=== PATIENT | female | born 1975 | race American Indian/Alaskan Native ===

== ENCOUNTER 2018-03-10 23:43 | Emergency (ER) | payer MEDICAID, OTHER ==
[2018-03-11] MEDS ORDERED: MOTRIN PO ONE (04:35)
--- NOTE | 2018-03-11 04:38 | Emergency Department Report ---
ED Extremity Problem HPI - General Chief complaint: Extremity Problem,Nontraumatic Stated complaint: SWELLING IN RIGHT ARM Time Seen by Provider: 03/11/18 04:22 Source: patient Mode of arrival: Ambulatory Limitations: No Limitations - History of Present Illness -: days(s) (1) Location: right History of Same: No Quality: aching Consistency: intermittent Improves with: nothing Associated Symptoms: denies other symptoms - Related Data Previous Rx's Medication Instructions Recorded Last Taken Type Lisinopril/Hydrochlorothiazide 1 tab PO QDAY #30 06/06/13 Unknown Rx [Zestoretic 10-12.5 mg] Acetaminophen/Codeine 1 tab PO Q6H PRN #12 tab 11/18/14 Unknown Rx [Acetaminophen-Codeine #3 TAB] Promethazine [Phenergan] 25 mg PO Q6H PRN #15 tablet 11/18/14 Unknown Rx Amoxicillin [Trimox CAP] 500 mg PO Q8H #30 capsule 12/17/14 Unknown Rx predniSONE [Deltasone] 20 mg PO BID #8 tab 12/17/14 Unknown Rx Hyoscyamine Subl [Levsin Sl 0.125] 0.125 mg SL Q4HR PRN #10 tablet 01/27/15 Unknown Rx Omeprazole [PriLOSEC] 20 mg PO QDAY #30 capsule.dr 01/27/15 Unknown Rx Ondansetron [Zofran Odt] 4 mg PO Q6H #10 tab.rapdis 01/27/15 Unknown Rx Lisinopril/Hydrochlorothiazide 1 tab PO QDAY #30 tablet 08/19/15 Unknown Rx [Zestoretic 10-12.5 mg] Naproxen [Naprosyn TAB] 500 mg PO BID #30 tablet 08/19/15 Unknown Rx Acetaminophen/Codeine [Tylenol 1 tab PO Q6H PRN #20 tab 04/17/16 Unknown Rx /Codeine # 3 tab] Prednisone [predniSONE 10 mg 10 mg PO .TAPER #1 tab.ds.pk 04/17/16 Unknown Rx (6-Day Pack, 21 Tabs)] Cetirizine HCl [ZyrTEC] 10 mg PO DAILY #30 capsule 08/19/16 Unknown Rx Fluticasone [Flonase] 1 spray NS QDAY #1 bottle 08/19/16 Unknown Rx Ibuprofen [Motrin 800 MG tab] 800 mg PO Q8H PRN #30 tablet 08/19/16 Unknown Rx guaiFENesin/DEXTROMETHORPHAN 1 tab PO BID #20 tab 08/19/16 Unknown Rx [Mucinex DM ER 600-30 mg TAB] Ibuprofen [Motrin 800 MG tab] 800 mg PO Q8HR #30 tablet 03/11/18 Unknown Rx Triamcinolone Acetonide 15 gm TP BID #15 oint...g. 03/11/18 Unknown Rx [Triamcinolone Acetonide Oint 0.5%] Allergies Allergy/AdvReac Type Severity Reaction Status Date / Time No Known Allergies Allergy Verified 03/11/18 00:17 ED Review of Systems ROS: Stated complaint: SWELLING IN RIGHT ARM Other details as noted in HPI Musculoskeletal: joint swelling (right elbow), arthralgia (I elbow) Skin: rash ED Past Medical Hx - Past Medical History Hx Hypertension: Yes Additional medical history: anemia - Surgical History Additional Surgical History: Embolization Uterine Fibroid,TUBAL LIGATION - Social History Smoking Status: Never Smoker Substance Use Type: None - Medications Home Medications: Home Medications Medication Instructions Recorded Confirmed Last Taken Type Lisinopril/Hydrochlorothiazide 1 tab PO QDAY #30 06/06/13 11/18/14 Unknown Rx [Zestoretic 10-12.5 mg] Acetaminophen/Codeine 1 tab PO Q6H PRN #12 tab 11/18/14 Unknown Rx [Acetaminophen-Codeine #3 TAB] Promethazine [Phenergan] 25 mg PO Q6H PRN #15 tablet 11/18/14 Unknown Rx Amoxicillin [Trimox CAP] 500 mg PO Q8H #30 capsule 12/17/14 Unknown Rx predniSONE [Deltasone] 20 mg PO BID #8 tab 12/17/14 Unknown Rx Hyoscyamine Subl [Levsin Sl 0.125] 0.125 mg SL Q4HR PRN #10 tablet 01/27/15 Unknown Rx Omeprazole [PriLOSEC] 20 mg PO QDAY #30 capsule. 01/27/15 Unknown Rx Ondansetron [Zofran Odt] 4 mg PO Q6H #10 tab.rapdis 01/27/15 Unknown Rx Lisinopril/Hydrochlorothiazide 1 tab PO QDAY #30 tablet 08/19/15 Unknown Rx [Zestoretic 10-12.5 mg] Naproxen [Naprosyn TAB] 500 mg PO BID #30 tablet 08/19/15 Unknown Rx Acetaminophen/Codeine [Tylenol 1 tab PO Q6H PRN #20 tab 04/17/16 Unknown Rx /Codeine # 3 tab] Prednisone [predniSONE 10 mg 10 mg PO .TAPER #1 tab.ds.pk 04/17/16 Unknown Rx (6-Day Pack, 21 Tabs)] Cetirizine HCl [ZyrTEC] 10 mg PO DAILY #30 capsule 08/19/16 Unknown Rx Fluticasone [Flonase] 1 spray NS QDAY #1 bottle 08/19/16 Unknown Rx Ibuprofen [Motrin 800 MG tab] 800 mg PO Q8H PRN #30 tablet 08/19/16 Unknown Rx guaiFENesin/DEXTROMETHORPHAN 1 tab PO BID #20 tab 08/19/16 Unknown Rx [Mucinex DM ER 600-30 mg TAB] Ibuprofen [Motrin 800 MG tab] 800 mg PO Q8HR #30 tablet 03/11/18 Unknown Rx Triamcinolone Acetonide 15 gm TP BID #15 oint...g. 03/11/18 Unknown Rx [Triamcinolone Acetonide Oint 0.5%] ED Physical Exam - General Limitations: No Limitations General appearance: alert, in no apparent distress - Head Head exam: Present: atraumatic, normocephalic - ENT ENT exam: Present: mucous membranes moist - Expanded Upper Extremity Exam Right Elbow exam: Present: full ROM, tenderness, swelling. Absent: ecchymosis, erythema Forearm Wrist exam: Present: normal inspection, full ROM. Absent: tenderness, swelling Hand Wrist exam: Present: full ROM Neuro motor exam: Present: wrist extension intact Neurosensory exam: Present: 2-point discrimination Vascular: Absent: vascular compromise - Neurological Exam Neurological exam: Present: alert, oriented X3 - Expanded Neurological Exam Expanded Cranial nerves: EOM's Intact: Normal, Gag Reflex: Normal, Tongue Deviation: Normal, Nystagmus: Normal, Facial Sensation: Normal, Facial Palsy with Forehead Movement: Normal, Facial Palsy without Forehead Movement: Normal Cerebellar function: Finger to Nose: Normal, Heel to Love: Normal, Romberg: Normal Upper motor neuron: Jarred Neglect: Normal, Pronator Drift: Normal, Babinski Sign : Normal, Sensory Extinction: Normal Sensory exam: Upper Extremity Light Touch: Normal, Upper Extremity Pin Prick: Normal, Upper Extremity Temperature: Normal, UE 2 Point Discrimination: Normal, Lower Extremity Light Touch: Normal, Lower Extremity Pin Prick: Normal Motor strength exam: RUE: 5, LUE: 5, RLE: 5, LLE: 5 Best Eye Response ([place]): (4) open spontaneously Best Motor Response ([place]): (6) obeys commands Best Verbal Response ([place]): (5) oriented [place] Total: 15 - Psychiatric Psychiatric exam: Present: normal affect, normal mood - Skin Skin exam: Present: warm, intact, normal color. Absent: rash - Expanded Skin Exam Expanded Type of lesion: Present: rash Distribution of rash: neck (right side) Description of rash: Present: papular ED Course Vital Signs 03/11/18 00:12 Temperature 98.0 F Pulse Rate 84 Respiratory 19 Rate Blood Pressure 151/89 O2 Sat by Pulse 98 Oximetry Critical care attestation.: If time is entered above; I have spent that time in minutes in the direct care of this critically ill patient, excluding procedure time. ED Disposition Clinical Impression: Olecranon bursitis of right elbow, Rash Disposition: DC-01 TO HOME OR SELFCARE Is pt being admited?: No Does the pt Need Aspirin: No Condition: Stable Instructions: Acute Rash (ED), Elbow Bursitis (ED) Additional Instructions: Take pain medication and use cream as prescribed. If her symptoms persist or gets worse please follow up with her primary care provider or orthopedist. Prescriptions: Ibuprofen [Motrin 800 MG tab] 800 mg PO Q8HR #30 tablet Triamcinolone Acetonide [Triamcinolone Acetonide Oint 0.5%] 15 gm TP BID #15 oint...g. Referrals: PRIMARY CAREMD [Primary Care Provider] - 3-5 Days [facility] [Outside] - 3-5 Days AUGUSTINE MCLEOD MD [Staff Physician] - 3-5 Days Forms: Work/School Release Form(ED), Accompanied Note
[2018-03-11 05:43] VITALS: BP 149/84
== END 2018-03-11 05:43 | disposition home or self-care (01) ==
LOC: ED 23:43
DX: M70.21 Olecranon bursitis, right elbow (principal); Y93.89 Activity, other specified; I10 Essential (primary) hypertension; Z98.51 Tubal ligation status
CPT/HCPCS: 99282

== ENCOUNTER 2018-10-27 12:13 | Emergency (ER) | payer MEDICAID ==
--- NOTE | 2018-10-27 12:40 | Emergency Department Report ---
Chief Complaint: Earache Stated Complaint: SOB - HPI History of Present Illness: Pt co URI s/s cough sore throat post nasal drip no fever no cp no sob non toxic ambulatory no life threatening condition identified med screen provided. - Exam Vital Signs: Vital Signs 10/27/18 12:21 Temperature 97.7 F Pulse Rate 72 Respiratory 18 Rate Blood Pressure 155/76 O2 Sat by Pulse 99 Oximetry MSE screening note: Focused history and physical exam performed. Due to findings the following was ordered: ED Disposition for MSE Condition: Stable
--- NOTE | 2018-10-27 14:55 | Emergency Department Report ---
Minor Respiratory - HPI Chief Complaint: Earache Stated Complaint: SOB Time Seen by Provider: 10/27/18 12:44 Duration: 3 weeks Pain Location: Throat, Ear Severity: severe Minor Respiratory: Yes Rhinorrhea (congestion and runny nose), Yes Sore Throat ( 8/10), Yes Ear Pain (8/10), Yes Cough (dry cough), No Sick Contacts, No Hemoptysis, No Chest Pain, No Shortness of Breath, No Fever Other History: This is a 43-year-old female here report that she went to her primary care physician about 2 weeks ago and complained of runny nose cough, sore throat and earache and she gave her eardrops but her situation is getting worse. She is having sore throat and earache at 8/10 and achy. Denies any shortness of breath or chest pain. Denies any nausea vomiting and she says she had some chills last night. Denies any abdominal pain or back pain. She states antibiotic eardrops since that she took some [id number] medication but it is not helping. No alleviating or exacerbating factors ED Review of Systems ROS: Stated complaint: SOB Other details as noted in HPI Constitutional: chills Eyes: denies: eye pain, eye discharge ENT: ear pain, throat pain, congestion Respiratory: denies: cough, shortness of breath, wheezing Cardiovascular: denies: chest pain, palpitations (and I wish I had enough money to retire) Gastrointestinal: denies: abdominal pain (over the best thing), nausea, vomiting Musculoskeletal: denies: back pain, joint swelling ( if he apparently got), arthralgia, myalgia Skin: denies: rash (ovary that is relatively), pruritus Neurological: headache ( mild mild headache at 2/10). denies: numbness, abnormal gait, vertigo ED Past Medical Hx - Past Medical History Previous Medical History?: Yes Hx Hypertension: Yes Additional medical history: anemia - Surgical History Past Surgical History?: Yes Additional Surgical History: Embolization Uterine Fibroid,TUBAL LIGATION - Family History Family history: hypertension - Social History Smoking Status: Never Smoker Substance Use Type: None - Medications Home Medications: Home Medications Medication Instructions Recorded Confirmed Last Taken Type Lisinopril/Hydrochlorothiazide 1 tab PO QDAY #30 06/06/11/18/14 Unknown Rx [Zestoretic 10-12.5 mg] Acetaminophen/Codeine 1 tab PO Q6H PRN #12 tab 11/18/14 Unknown Rx [Acetaminophen-Codeine #3 TAB] Promethazine [Phenergan] 25 mg PO Q6H PRN #15 tablet 11/18/14 Unknown Rx Amoxicillin [Trimox CAP] 500 mg PO Q8H #30 capsule 12/17/14 Unknown Rx predniSONE [Deltasone] 20 mg PO BID #8 tab 12/17/14 Unknown Rx Hyoscyamine Subl [Levsin Sl 0.125] 0.125 mg SL Q4HR PRN #10 tablet 01/27/15 Unknown Rx Omeprazole [PriLOSEC] 20 mg PO QDAY #30 capsule. 01/27/15 Unknown Rx Ondansetron [Zofran Odt] 4 mg PO Q6H #10 tab.rapdis 01/27/15 Unknown Rx Lisinopril/Hydrochlorothiazide 1 tab PO QDAY #30 tablet 08/19/15 Unknown Rx [Zestoretic 10-12.5 mg] Naproxen [Naprosyn TAB] 500 mg PO BID #30 tablet 08/19/15 Unknown Rx Acetaminophen/Codeine [Tylenol 1 tab PO Q6H PRN #20 tab 04/17/16 Unknown Rx /Codeine # 3 tab] Prednisone [predniSONE 10 mg 10 mg PO .TAPER #1 tab.ds.pk 04/17/16 Unknown Rx (6-Day Pack, 21 Tabs)] Cetirizine HCl [ZyrTEC] 10 mg PO DAILY #30 capsule 08/19/16 Unknown Rx Fluticasone [Flonase] 1 spray NS QDAY #1 bottle 08/19/16 Unknown Rx Ibuprofen [Motrin 800 MG tab] 800 mg PO Q8H PRN #30 tablet 08/19/16 Unknown Rx guaiFENesin/DEXTROMETHORPHAN 1 tab PO BID #20 tab 08/19/16 Unknown Rx [Mucinex DM ER 600-30 mg TAB] Ibuprofen [Motrin 800 MG tab] 800 mg PO Q8HR #30 tablet 03/11/18 Unknown Rx Triamcinolone Acetonide 15 gm TP BID #15 oint...g. 03/11/18 Unknown Rx [Triamcinolone Acetonide Oint 0.5%] Amoxicillin/K Clav Tab [Augmentin 1 tab PO Q12HR #20 tab 10/27/18 Unknown Rx 875MG TAB] Cetirizine HCl [ZyrTEC] 10 mg PO QAM 14 Days #14 capsule 10/27/18 Unknown Rx Fluticasone [Flonase] 1 spray NS QDAY 14 Days #1 bottle 10/27/18 Unknown Rx Ibuprofen [Motrin] 800 mg PO Q8HR PRN #12 tablet 10/27/18 Unknown Rx methylPREDNISolone [Medrol Dose 4 mg PO DAILY #1 tab.ds.pk 10/27/18 Unknown Rx Alek] Minor Respiratory Exam - Exam General: Vital signs noted. No distress. Alert and acting appropriately. This is a 43-year-old female well-nourished well-developed in no acute distress. HEENT: Yes Moist Mucous Membranes (uvula midline and oral airways patent), Yes Rhinorrhea (red, swollen nasal mucosa with clear drainage), No Pharyngeal Erythema, No Pharyngeal Exudates, No Conjuctival Injection, No Frontal Tenderness, No Maxillary Tenderness Ear: Neither TM Bulge (bilateral TM congested), Neither TM Erythema, Neither EAC Pain, Neither EAC Discharge Neck: Yes Supple (full range of motion and no C-spine tenderness), No Adenopathy Lungs: Yes Good Air Exchange, Yes Cough (dry cough), No Wheezes, No Ronchi, No Stridor, No Labored Respirations, No Retractions, No Use of Accessory Muscles, No Other Abnormal Lung Sounds Heart: Yes Regular, No Murmur Abdomen: Yes Normal Bowel Sounds (in all quadrants), No Tenderness (nontender to palpate in all quadrants.), No Peritoneal Signs Skin: No Rash, No Edema Neurologic: Alert and oriented 3, no deficits. Musculoskeletal: Unremarkable. No cce. + 2 pulses in all extremities, no neurovascular compromise ED Course Vital Signs 10/27/18 12:21 Temperature 97.7 F Pulse Rate 72 Respiratory 18 Rate Blood Pressure 155/76 O2 Sat by Pulse 99 Oximetry - Reevaluation(s) Reevaluation #1: 10/27/18 15:20 anything either patient stable throughout ED course. No distress ED Medical Decision Making - Medical Decision Making 43-year-old patient is here with complaint of respiratory symptoms and found to have bacterial rhinosinusitis and earache. Please see my notes for detail. Assessment/plan Bilateral otalgia Bacterial rhinosinusitis Patient discharged home in stable condition with prescription for Medrol Dosepak, Zyrtec, Flonase, Augmentin and ibuprofen. I discussed with her that she needs to follow up with her primary care physician. She voiced understanding. Diagnosis and treatment plan explained to her and she is discharged home in stable condition. Vital signs are stable she is afebrile and in no acute distress. Critical care attestation.: If time is entered above; I have spent that time in minutes in the direct care of this critically ill patient, excluding procedure time. ED Disposition Clinical Impression: Otalgia of both ears, Acute bacterial rhinosinusitis Disposition: TO HOME OR SELFCARE Is pt being admited?: No Does the pt Need Aspirin: No Condition: Stable Instructions: Acute Bacterial Rhinosinusitis (ED), Earache (ED) Additional Instructions: Please take antibiotic as prescribed Follow-up with primary care physician in 3-5 days Take Zyrtec, Flonase and Medrol Dosepak, to help to relieve congestion. Take Zofran for nausea Take Motrin as prescribed for pain but take with food as this can cause irritation to stomach lining If your condition worsens to include difficulty breathing, swallowing, chest pain, nausea and vomiting and fever does not relief with Motrin please return to the emergency room DARRIUS. Gargle with warm salt water and this will help to relieve sore throat Please increase her fluid intake to 2-3 L of water daily Flushing nostrils out with nasal saline and this will help to relieve congestion. Prescriptions: Amoxicillin/K Clav Tab [Augmentin 875MG TAB] 1 tab PO Q12HR #20 tab Cetirizine HCl [ZyrTEC] 10 mg PO QAM 14 Days #14 capsule Fluticasone [Flonase] 1 spray NS QDAY 14 Days #1 bottle Ibuprofen [Motrin] 800 mg PO Q8HR PRN #12 tablet PRN Reason: pain methylPREDNISolone [Medrol Dose Alek] 4 mg PO DAILY #1 tab.ds.pk Referrals: PRIMARY CARE, [Referring] - 3-5 Days Forms: Work/School Release Form(ED)
[2018-10-27 15:47] VITALS: BP 142/70
== END 2018-10-27 15:45 | disposition home or self-care (01) ==
LOC: ED 12:13
DX: J01.90 Acute sinusitis, unspecified (principal); B96.89 Other specified bacterial agents as the cause of diseases classified elsewhere; I10 Essential (primary) hypertension
CPT/HCPCS: 99282

== ENCOUNTER 2018-11-19 12:41 | Emergency (ER) | payer MEDICAID ==
--- NOTE | 2018-11-19 12:59 | Emergency Department Report ---
Blank Doc - Documentation Documentation: This is a 43-year-old female that presents with sore throat and left earache. This initial assessment/diagnostic orders/clinical plan/treatment(s) is/are subject to change based on patient's health status, clinical progression and re- assessment by fellow clinical providers in the ED. Further treatment and workup at subsequent clinical providers discretion. Patient/guardians urged not to elope from the ED as their condition may be serious if not clinically assessed and managed. Initial orders include: 1- Patient sent to [facility] for further evaluation and treatment 2- strep swab
[2018-11-19 13:04] VITALS: BP 175/81
--- NOTE | 2018-11-19 14:19 | Emergency Department Report ---
ED ENT HPI - General Chief complaint: Earache Stated complaint: EARACHE/SORE THROAT Time Seen by Provider: 11/19/18 12:58 Source: patient Mode of arrival: Ambulatory Limitations: No Limitations - History of Present Illness MD complaint: ear pain -: week(s) Location: L ear Severity: moderate Consistency: constant - Related Data Previous Rx's Medication Instructions Recorded Last Taken Type Lisinopril/Hydrochlorothiazide 1 tab PO QDAY #30 06/06/13 Unknown Rx [Zestoretic 10-12.5 mg] Acetaminophen/Codeine 1 tab PO Q6H PRN #12 tab 11/18/14 Unknown Rx [Acetaminophen-Codeine #3 TAB] Promethazine [Phenergan] 25 mg PO Q6H PRN #15 tablet 11/18/14 Unknown Rx Amoxicillin [Trimox CAP] 500 mg PO Q8H #30 capsule 12/17/14 Unknown Rx predniSONE [Deltasone] 20 mg PO BID #8 tab 12/17/14 Unknown Rx Hyoscyamine Subl [Levsin Sl 0.125] 0.125 mg SL Q4HR PRN #10 tablet 01/27/15 Unknown Rx Omeprazole [PriLOSEC] 20 mg PO QDAY #30 capsule.dr 01/27/15 Unknown Rx Ondansetron [Zofran Odt] 4 mg PO Q6H #10 tab.rapdis 01/27/15 Unknown Rx Lisinopril/Hydrochlorothiazide 1 tab PO QDAY #30 tablet 08/19/15 Unknown Rx [Zestoretic 10-12.5 mg] Naproxen [Naprosyn TAB] 500 mg PO BID #30 tablet 08/19/15 Unknown Rx Acetaminophen/Codeine [Tylenol 1 tab PO Q6H PRN #20 tab 04/17/16 Unknown Rx /Codeine # 3 tab] Prednisone [predniSONE 10 mg 10 mg PO .TAPER #1 tab.ds.pk 04/17/16 Unknown Rx (6-Day Pack, 21 Tabs)] Cetirizine HCl [ZyrTEC] 10 mg PO DAILY #30 capsule 08/19/16 Unknown Rx Fluticasone [Flonase] 1 spray NS QDAY #1 bottle 08/19/16 Unknown Rx Ibuprofen [Motrin 800 MG tab] 800 mg PO Q8H PRN #30 tablet 08/19/16 Unknown Rx guaiFENesin/DEXTROMETHORPHAN 1 tab PO BID #20 tab 08/19/16 Unknown Rx [Mucinex DM ER 600-30 mg TAB] Ibuprofen [Motrin 800 MG tab] 800 mg PO Q8HR #30 tablet 03/11/18 Unknown Rx Triamcinolone Acetonide 15 gm TP BID #15 oint...g. 03/11/18 Unknown Rx [Triamcinolone Acetonide Oint 0.5%] Amoxicillin/K Clav Tab [Augmentin 1 tab PO Q12HR #20 tab 10/27/18 Unknown Rx 875MG TAB] Cetirizine HCl [ZyrTEC] 10 mg PO QAM 14 Days #14 capsule 10/27/18 Unknown Rx Fluticasone [Flonase] 1 spray NS QDAY 14 Days #1 bottle 10/27/18 Unknown Rx Ibuprofen [Motrin] 800 mg PO Q8HR PRN #12 tablet 10/27/18 Unknown Rx methylPREDNISolone [Medrol Dose 4 mg PO DAILY #1 tab.ds.pk 10/27/18 Unknown Rx Alek] Allergies Allergy/AdvReac Type Severity Reaction Status Date / Time No Known Allergies Allergy Verified 11/19/18 12:42 ED Dental HPI - General Chief complaint: Earache Stated complaint: EARACHE/SORE THROAT Time Seen by Provider: 11/19/18 12:58 Source: patient Mode of arrival: Ambulatory Limitations: No Limitations - Related Data Previous Rx's Medication Instructions Recorded Last Taken Type Lisinopril/Hydrochlorothiazide 1 tab PO QDAY #30 06/06/13 Unknown Rx [Zestoretic 10-12.5 mg] Acetaminophen/Codeine 1 tab PO Q6H PRN #12 tab 11/18/14 Unknown Rx [Acetaminophen-Codeine #3 TAB] Promethazine [Phenergan] 25 mg PO Q6H PRN #15 tablet 11/18/14 Unknown Rx Amoxicillin [Trimox CAP] 500 mg PO Q8H #30 capsule 12/17/14 Unknown Rx predniSONE [Deltasone] 20 mg PO BID #8 tab 12/17/14 Unknown Rx Hyoscyamine Subl [Levsin Sl 0.125] 0.125 mg SL Q4HR PRN #10 tablet 01/27/15 Unknown Rx Omeprazole [PriLOSEC] 20 mg PO QDAY #30 01/27/15 Unknown Rx Ondansetron [Zofran Odt] 4 mg PO Q6H #10 tab.rapdis 01/27/15 Unknown Rx Lisinopril/Hydrochlorothiazide 1 tab PO QDAY #30 tablet 08/19/15 Unknown Rx [Zestoretic 10-12.5 mg] Naproxen [Naprosyn TAB] 500 mg PO BID #30 tablet 08/19/15 Unknown Rx Acetaminophen/Codeine [Tylenol 1 tab PO Q6H PRN #20 tab 04/17/16 Unknown Rx /Codeine # 3 tab] Prednisone [predniSONE 10 mg 10 mg PO .TAPER #1 tab.ds.pk 04/17/16 Unknown Rx (6-Day Pack, 21 Tabs)] Cetirizine HCl [ZyrTEC] 10 mg PO DAILY #30 capsule 08/19/16 Unknown Rx Fluticasone [Flonase] 1 spray NS QDAY #1 bottle 08/19/16 Unknown Rx Ibuprofen [Motrin 800 MG tab] 800 mg PO Q8H PRN #30 tablet 08/19/16 Unknown Rx guaiFENesin/DEXTROMETHORPHAN 1 tab PO BID #20 tab 08/19/16 Unknown Rx [Mucinex DM ER 600-30 mg TAB] Ibuprofen [Motrin 800 MG tab] 800 mg PO Q8HR #30 tablet 03/11/18 Unknown Rx Triamcinolone Acetonide 15 gm TP BID #15 oint...g. 03/11/18 Unknown Rx [Triamcinolone Acetonide Oint 0.5%] Amoxicillin/K Clav Tab [Augmentin 1 tab PO Q12HR #20 tab 10/27/18 Unknown Rx 875MG TAB] Cetirizine HCl [ZyrTEC] 10 mg PO QAM 14 Days #14 capsule 10/27/18 Unknown Rx Fluticasone [Flonase] 1 spray NS QDAY 14 Days #1 bottle 10/27/18 Unknown Rx Ibuprofen [Motrin] 800 mg PO Q8HR PRN #12 tablet 10/27/18 Unknown Rx methylPREDNISolone [Medrol Dose 4 mg PO DAILY #1 tab.ds.pk 10/27/18 Unknown Rx Alek] Allergies Allergy/AdvReac Type Severity Reaction Status Date / Time No Known Allergies Allergy Verified 11/19/18 12:42 ED Review of Systems ROS: Stated complaint: EARACHE/SORE THROAT Other details as noted in HPI Comment: All other systems reviewed and negative Constitutional: denies: chills, fever ENT: ear pain, congestion Respiratory: denies: cough, shortness of breath, SOB with exertion Gastrointestinal: denies: abdominal pain, nausea, vomiting, diarrhea, constipation, hematemesis Neurological: denies: headache, weakness, numbness, paresthesias ED Past Medical Hx - Past Medical History Hx Hypertension: Yes Additional medical history: anemia - Surgical History Additional Surgical History: Embolization Uterine Fibroid,TUBAL LIGATION - Social History Smoking Status: Never Smoker Substance Use Type: None - Medications Home Medications: Home Medications Medication Instructions Recorded Confirmed Last Taken Type Lisinopril/Hydrochlorothiazide 1 tab PO QDAY #30 06/06/13 11/18/14 Unknown Rx [Zestoretic 10-12.5 mg] Acetaminophen/Codeine 1 tab PO Q6H PRN #12 tab 11/18/14 Unknown Rx [Acetaminophen-Codeine #3 TAB] Promethazine [Phenergan] 25 mg PO Q6H PRN #15 tablet 11/18/14 Unknown Rx Amoxicillin [Trimox CAP] 500 mg PO Q8H #30 capsule 12/17/14 Unknown Rx predniSONE [Deltasone] 20 mg PO BID #8 tab 12/17/14 Unknown Rx Hyoscyamine Subl [Levsin Sl 0.125] 0.125 mg SL Q4HR PRN #10 tablet 01/27/15 Unknown Rx Omeprazole [PriLOSEC] 20 mg PO QDAY #30 capsule. 01/27/15 Unknown Rx Ondansetron [Zofran Odt] 4 mg PO Q6H #10 tab.rapjamey 01/27/15 Unknown Rx Lisinopril/Hydrochlorothiazide 1 tab PO QDAY #30 tablet 08/19/15 Unknown Rx [Zestoretic 10-12.5 mg] Naproxen [Naprosyn TAB] 500 mg PO BID #30 tablet 08/19/15 Unknown Rx Acetaminophen/Codeine [Tylenol 1 tab PO Q6H PRN #20 tab 04/17/16 Unknown Rx /Codeine # 3 tab] Prednisone [predniSONE 10 mg 10 mg PO .TAPER #1 tab.ds.pk 04/17/16 Unknown Rx (6-Day Pack, 21 Tabs)] Cetirizine HCl [ZyrTEC] 10 mg PO DAILY #30 capsule 08/19/16 Unknown Rx Fluticasone [Flonase] 1 spray NS QDAY #1 bottle 08/19/16 Unknown Rx Ibuprofen [Motrin 800 MG tab] 800 mg PO Q8H PRN #30 tablet 08/19/16 Unknown Rx guaiFENesin/DEXTROMETHORPHAN 1 tab PO BID #20 tab 08/19/16 Unknown Rx [Mucinex DM ER 600-30 mg TAB] Ibuprofen [Motrin 800 MG tab] 800 mg PO Q8HR #30 tablet 03/11/18 Unknown Rx Triamcinolone Acetonide 15 gm TP BID #15 oint...g. 03/11/18 Unknown Rx [Triamcinolone Acetonide Oint 0.5%] Amoxicillin/K Clav Tab [Augmentin 1 tab PO Q12HR #20 tab 10/27/18 Unknown Rx 875MG TAB] Cetirizine HCl [ZyrTEC] 10 mg PO QAM 14 Days #14 capsule 10/27/18 Unknown Rx Fluticasone [Flonase] 1 spray NS QDAY 14 Days #1 bottle 10/27/18 Unknown Rx Ibuprofen [Motrin] 800 mg PO Q8HR PRN #12 tablet 10/27/18 Unknown Rx methylPREDNISolone [Medrol Dose 4 mg PO DAILY #1 tab.ds.pk 10/27/18 Unknown Rx Alek] ED Physical Exam - General Limitations: No Limitations General appearance: alert, in no apparent distress, anxious - Head Head exam: Present: atraumatic, normocephalic, normal inspection - Eye Eye exam: Present: normal appearance - ENT ENT exam: Present: other (left otitis media) - Neck Neck exam: Present: normal inspection, full ROM. Absent: tenderness, meningismus, lymphadenopathy, thyromegaly - Respiratory Respiratory exam: Present: normal lung sounds bilaterally. Absent: respiratory distress, wheezes, rales, rhonchi, stridor, chest wall tenderness, accessory muscle use, decreased breath sounds, prolonged expiratory - Cardiovascular Cardiovascular Exam: Present: regular rate, normal rhythm, normal heart sounds - GI/Abdominal GI/Abdominal exam: Present: soft. Absent: distended, tenderness, guarding, rebound, rigid - Extremities Exam Extremities exam: Present: normal inspection, full ROM, normal capillary refill. Absent: pedal edema, calf tenderness - Back Exam Back exam: Present: normal inspection, full ROM - Neurological Exam Neurological exam: Present: alert, oriented X3, CN II-XII intact, normal gait, reflexes normal - Skin Skin exam: Present: warm, intact, normal color ED Course Vital Signs 11/19/18 13:00 Temperature 98.4 F Pulse Rate 85 Respiratory 20 Rate Blood Pressure 175/81 O2 Sat by Pulse 98 Oximetry Critical care attestation.: If time is entered above; I have spent that time in minutes in the direct care of this critically ill patient, excluding procedure time. ED Disposition Clinical Impression: Otitis media, Hypertension Disposition: DC-01 TO HOME OR SELFCARE Is pt being admited?: No Condition: Stable Instructions: Hypertension (ED), Otitis Media (ED) Referrals: NAVA DANIELS MD [Primary Care Provider] - 3-5 Days
== END 2018-11-19 14:26 | disposition home or self-care (01) ==
LOC: ED 12:41
DX: H66.92 Otitis media, unspecified, left ear (principal); I10 Essential (primary) hypertension; D64.9 Anemia, unspecified; D25.9 Leiomyoma of uterus, unspecified; Z98.51 Tubal ligation status
CPT/HCPCS: 87116; 87430

== ENCOUNTER 2018-12-27 19:55 | Emergency (ER) | payer MEDICAID ==
[2018-12-27 20:38] VITALS: BP 162/79
[2018-12-27] MEDS ORDERED: BENADRYL PO ONE (22:57)
[2018-12-27] MEDS ORDERED: IBUPROFEN PO ONE (22:57)
[2018-12-27] MEDS ORDERED: CLEOCIN PO ONE (22:57)
[2018-12-27] MEDS ORDERED: DECADRON IM ONE (22:57)
--- NOTE | 2018-12-27 23:08 | Emergency Department Report ---
ED ENT HPI - General Chief complaint: Earache Stated complaint: LEFT EAR PAIN Time Seen by Provider: 12/27/18 22:57 Source: patient Mode of arrival: Ambulatory Limitations: No Limitations - History of Present Illness Initial comments: pt is a 43 y/o aaf who presents for recurrent ear infection and sinusitis. Patient states that she has been tx'd for sinusitis 2 times in the last 2 months. Symptoms include frontal and maxillary sinus pressure and pain , postnasal drip and rhinorrhea that is yellow/greenish in color, nocturnal fever and ear pain patient states she is not been able to see ENT requesting a referral to ENT symptoms now rated at 5/10 for congestion and pressure MD complaint: ear pain Onset/Timin -: month(s) Location: R ear, L ear Severity: moderate Severity scale (0 -10): 5 Quality: aching, other (pressure) Consistency: constant Improves with: none Worsens with: movement Associated Symptoms: fever, sore throat, rhinorrhea - Related Data Previous Rx's Medication Instructions Recorded Last Taken Type Lisinopril/Hydrochlorothiazide 1 tab PO QDAY #30 06/06/13 Unknown Rx [Zestoretic 10-12.5 mg] Acetaminophen/Codeine 1 tab PO Q6H PRN #12 tab 11/18/14 Unknown Rx [Acetaminophen-Codeine #3 TAB] Promethazine [Phenergan] 25 mg PO Q6H PRN #15 tablet 11/18/14 Unknown Rx Amoxicillin [Trimox CAP] 500 mg PO Q8H #30 capsule 12/17/14 Unknown Rx predniSONE [Deltasone] 20 mg PO BID #8 tab 12/17/14 Unknown Rx Hyoscyamine Subl [Levsin Sl 0.125] 0.125 mg SL Q4HR PRN #10 tablet 01/27/15 Unknown Rx Omeprazole [PriLOSEC] 20 mg PO QDAY #30 capsule. 01/27/15 Unknown Rx Ondansetron [Zofran Odt] 4 mg PO Q6H #10 tab.rapdis 01/27/15 Unknown Rx Lisinopril/Hydrochlorothiazide 1 tab PO QDAY #30 tablet 08/19/15 Unknown Rx [Zestoretic 10-12.5 mg] Naproxen [Naprosyn TAB] 500 mg PO BID #30 tablet 08/19/15 Unknown Rx Acetaminophen/Codeine [Tylenol 1 tab PO Q6H PRN #20 tab 04/17/16 Unknown Rx /Codeine # 3 tab] Prednisone [predniSONE 10 mg 10 mg PO .TAPER #1 tab.ds.pk 04/17/16 Unknown Rx (6-Day Pack, 21 Tabs)] Cetirizine HCl [ZyrTEC] 10 mg PO DAILY #30 capsule 08/19/16 Unknown Rx Fluticasone [Flonase] 1 spray NS QDAY #1 bottle 08/19/16 Unknown Rx Ibuprofen [Motrin 800 MG tab] 800 mg PO Q8H PRN #30 tablet 08/19/16 Unknown Rx guaiFENesin/DEXTROMETHORPHAN 1 tab PO BID #20 tab 08/19/16 Unknown Rx [Mucinex DM ER 600-30 mg TAB] Ibuprofen [Motrin 800 MG tab] 800 mg PO Q8HR #30 tablet 03/11/18 Unknown Rx Triamcinolone Acetonide 15 gm TP BID #15 oint...g. 03/11/18 Unknown Rx [Triamcinolone Acetonide Oint 0.5%] Amoxicillin/K Clav Tab [Augmentin 1 tab PO Q12HR #20 tab 10/27/18 Unknown Rx 875MG TAB] Cetirizine HCl [ZyrTEC] 10 mg PO QAM 14 Days #14 capsule 10/27/18 Unknown Rx Fluticasone [Flonase] 1 spray NS QDAY 14 Days #1 bottle 10/27/18 Unknown Rx Ibuprofen [Motrin] 800 mg PO Q8HR PRN #12 tablet 10/27/18 Unknown Rx methylPREDNISolone [Medrol Dose 4 mg PO DAILY #1 tab.ds.pk 10/27/18 Unknown Rx Alek] Amoxicillin/Potassium Clav 1 each PO BID #20 tablet 11/19/18 Unknown Rx [Augmentin 875-125 Tablet] hydroCHLOROthiazide [HCTZ] 25 mg PO QDAY #30 tablet 11/19/18 Unknown Rx Clindamycin [Clindamycin CAP] 300 mg PO Q8H 10 Days #30 cap 12/27/18 Unknown Rx Ibuprofen 800 mg PO TID PRN #30 tablet 12/27/18 Unknown Rx Oxymetazoline 0.05% [Afrin] 2 spray NS BID PRN 3 Days #1 bottle 12/27/18 Unknown Rx Allergies Allergy/AdvReac Type Severity Reaction Status Date / Time No Known Allergies Allergy Verified 11/19/18 12:42 ED Dental HPI - General Chief complaint: Earache Stated complaint: LEFT EAR PAIN Time Seen by Provider: 12/27/18 22:57 Source: patient Mode of arrival: Ambulatory Limitations: No Limitations - Related Data Previous Rx's Medication Instructions Recorded Last Taken Type Lisinopril/Hydrochlorothiazide 1 tab PO QDAY #30 06/06/13 Unknown Rx [Zestoretic 10-12.5 mg] Acetaminophen/Codeine 1 tab PO Q6H PRN #12 tab 11/18/14 Unknown Rx [Acetaminophen-Codeine #3 TAB] Promethazine [Phenergan] 25 mg PO Q6H PRN #15 tablet 11/18/14 Unknown Rx Amoxicillin [Trimox CAP] 500 mg PO Q8H #30 capsule 12/17/14 Unknown Rx predniSONE [Deltasone] 20 mg PO BID #8 tab 12/17/14 Unknown Rx Hyoscyamine Subl [Levsin Sl 0.125] 0.125 mg SL Q4HR PRN #10 tablet 01/27/15 Unknown Rx Omeprazole [PriLOSEC] 20 mg PO QDAY #30 capsule.dr 01/27/15 Unknown Rx Ondansetron [Zofran Odt] 4 mg PO Q6H #10 tab.rapdis 01/27/15 Unknown Rx Lisinopril/Hydrochlorothiazide 1 tab PO QDAY #30 tablet 08/19/15 Unknown Rx [Zestoretic 10-12.5 mg] Naproxen [Naprosyn TAB] 500 mg PO BID #30 tablet 08/19/15 Unknown Rx Acetaminophen/Codeine [Tylenol 1 tab PO Q6H PRN #20 tab 04/17/16 Unknown Rx /Codeine # 3 tab] Prednisone [predniSONE 10 mg 10 mg PO .TAPER #1 tab.ds.pk 04/17/16 Unknown Rx (6-Day Pack, 21 Tabs)] Cetirizine HCl [ZyrTEC] 10 mg PO DAILY #30 capsule 08/19/16 Unknown Rx Fluticasone [Flonase] 1 spray NS QDAY #1 bottle 08/19/16 Unknown Rx Ibuprofen [Motrin 800 MG tab] 800 mg PO Q8H PRN #30 tablet 08/19/16 Unknown Rx guaiFENesin/DEXTROMETHORPHAN 1 tab PO BID #20 tab 08/19/16 Unknown Rx [Mucinex DM ER 600-30 mg TAB] Ibuprofen [Motrin 800 MG tab] 800 mg PO Q8HR #30 tablet 03/11/18 Unknown Rx Triamcinolone Acetonide 15 gm TP BID #15 oint...g. 03/11/18 Unknown Rx [Triamcinolone Acetonide Oint 0.5%] Amoxicillin/K Clav Tab [Augmentin 1 tab PO Q12HR #20 tab 10/27/18 Unknown Rx 875MG TAB] Cetirizine HCl [ZyrTEC] 10 mg PO QAM 14 Days #14 capsule 10/27/18 Unknown Rx Fluticasone [Flonase] 1 spray NS QDAY 14 Days #1 bottle 10/27/18 Unknown Rx Ibuprofen [Motrin] 800 mg PO Q8HR PRN #12 tablet 10/27/18 Unknown Rx methylPREDNISolone [Medrol Dose 4 mg PO DAILY #1 tab.ds.pk 10/27/18 Unknown Rx Alek] Amoxicillin/Potassium Clav 1 each PO BID #20 tablet 11/19/18 Unknown Rx [Augmentin 875-125 Tablet] hydroCHLOROthiazide [HCTZ] 25 mg PO QDAY #30 tablet 11/19/18 Unknown Rx Clindamycin [Clindamycin CAP] 300 mg PO Q8H 10 Days #30 cap 12/27/18 Unknown Rx Ibuprofen 800 mg PO TID PRN #30 tablet 12/27/18 Unknown Rx Oxymetazoline 0.05% [Afrin] 2 spray NS BID PRN 3 Days #1 bottle 12/27/18 Unknown Rx Allergies Allergy/AdvReac Type Severity Reaction Status Date / Time No Known Allergies Allergy Verified 11/19/18 12:42 ED Review of Systems ROS: Stated complaint: LEFT EAR PAIN Other details as noted in HPI Constitutional: denies: chills, fever Eyes: denies: eye pain, eye discharge, vision change ENT: congestion. denies: ear pain, throat pain Respiratory: denies: cough, shortness of breath, wheezing Cardiovascular: denies: chest pain, palpitations Endocrine: no symptoms reported Gastrointestinal: denies: abdominal pain, nausea, diarrhea Genitourinary: denies: urgency, dysuria, discharge Musculoskeletal: denies: back pain, joint swelling, arthralgia Skin: denies: rash, lesions Neurological: denies: headache, weakness, paresthesias Psychiatric: denies: anxiety, depression Hematological/Lymphatic: denies: easy bleeding, easy bruising ED Past Medical Hx - Past Medical History Hx Hypertension: Yes Additional medical history: anemia - Surgical History Additional Surgical History: Embolization Uterine Fibroid,TUBAL LIGATION - Social History Smoking Status: Never Smoker Substance Use Type: None - Medications Home Medications: Home Medications Medication Instructions Recorded Confirmed Last Taken Type Lisinopril/Hydrochlorothiazide 1 tab PO QDAY #30 06/06/13 11/18/14 Unknown Rx [Zestoretic 10-12.5 mg] Acetaminophen/Codeine 1 tab PO Q6H PRN #12 tab 11/18/14 Unknown Rx [Acetaminophen-Codeine #3 TAB] Promethazine [Phenergan] 25 mg PO Q6H PRN #15 tablet 11/18/14 Unknown Rx Amoxicillin [Trimox CAP] 500 mg PO Q8H #30 capsule 12/17/14 Unknown Rx predniSONE [Deltasone] 20 mg PO BID #8 tab 12/17/14 Unknown Rx Hyoscyamine Subl [Levsin Sl 0.125] 0.125 mg SL Q4HR PRN #10 tablet 01/27/15 Unknown Rx Omeprazole [PriLOSEC] 20 mg PO QDAY #30 capsule.dr 01/27/15 Unknown Rx Ondansetron [Zofran Odt] 4 mg PO Q6H #10 tab.rapdis 01/27/15 Unknown Rx Lisinopril/Hydrochlorothiazide 1 tab PO QDAY #30 tablet 08/19/15 Unknown Rx [Zestoretic 10-12.5 mg] Naproxen [Naprosyn TAB] 500 mg PO BID #30 tablet 08/19/15 Unknown Rx Acetaminophen/Codeine [Tylenol 1 tab PO Q6H PRN #20 tab 04/17/16 Unknown Rx /Codeine # 3 tab] Prednisone [predniSONE 10 mg 10 mg PO .TAPER #1 tab.ds.pk 04/17/16 Unknown Rx (6-Day Pack, 21 Tabs)] Cetirizine HCl [ZyrTEC] 10 mg PO DAILY #30 capsule 08/19/16 Unknown Rx Fluticasone [Flonase] 1 spray NS QDAY #1 bottle 12/08/16 Unknown Rx Ibuprofen [Motrin 800 MG tab] 800 mg PO Q8H PRN #30 tablet 08/19/16 Unknown Rx guaiFENesin/DEXTROMETHORPHAN 1 tab PO BID #20 tab 08/19/16 Unknown Rx [Mucinex DM ER 600-30 mg TAB] Ibuprofen [Motrin 800 MG tab] 800 mg PO Q8HR #30 tablet 03/11/18 Unknown Rx Triamcinolone Acetonide 15 gm TP BID #15 oint...g. 03/11/18 Unknown Rx [Triamcinolone Acetonide Oint 0.5%] Amoxicillin/K Clav Tab [Augmentin 1 tab PO Q12HR #20 tab 10/27/18 Unknown Rx 875MG TAB] Cetirizine HCl [ZyrTEC] 10 mg PO QAM 14 Days #14 capsule 10/27/18 Unknown Rx Fluticasone [Flonase] 1 spray NS QDAY 14 Days #1 bottle 10/27/18 Unknown Rx Ibuprofen [Motrin] 800 mg PO Q8HR PRN #12 tablet 10/27/18 Unknown Rx methylPREDNISolone [Medrol Dose 4 mg PO DAILY #1 tab.ds.pk 10/27/18 Unknown Rx Alek] Amoxicillin/Potassium Clav 1 each PO BID #20 tablet 11/19/18 Unknown Rx [Augmentin 875-125 Tablet] hydroCHLOROthiazide [HCTZ] 25 mg PO QDAY #30 tablet 11/19/18 Unknown Rx Clindamycin [Clindamycin CAP] 300 mg PO Q8H 10 Days #30 cap 12/27/18 Unknown Rx Ibuprofen 800 mg PO TID PRN #30 tablet 12/27/18 Unknown Rx Oxymetazoline 0.05% [Afrin] 2 spray NS BID PRN 3 Days #1 bottle 12/27/18 Unknown Rx ED Physical Exam - General Limitations: No Limitations General appearance: alert, in no apparent distress - Head Head exam: Present: atraumatic, normocephalic - Eye Eye exam: Present: normal appearance, PERRL, EOMI Pupils: Present: normal accommodation - ENT ENT exam: Present: mucous membranes moist - Expanded ENT Exam Expanded Ear exam: Present: normal external inspection, other (bilat frontal no maxillay sinus pain to palpation no swelling no erythema ) TM/Canal exam: Erythema: Left TM Mouth exam: Absent: trismus Teeth exam: Present: normal inspection Throat exam: Positive: normal inspection, tonsillar erythema, other (uvula midline no stridor no exudate no lesions no wheezing ). Negative: tonsillomegaly, tonsillar exudate - Neck Neck exam: Present: normal inspection, tenderness, full ROM, lymphadenopathy. Absent: thyromegaly - Respiratory Respiratory exam: Present: normal lung sounds bilaterally. Absent: respiratory distress, wheezes, stridor, chest wall tenderness - Cardiovascular Cardiovascular Exam: Present: regular rate, normal rhythm, normal heart sounds. Absent: systolic murmur, diastolic murmur, rubs, gallop - GI/Abdominal GI/Abdominal exam: Present: soft, normal bowel sounds. Absent: distended, tenderness, rebound, bruit, hernia - Rectal Rectal exam: Present: deferred - External exam: Present: normal external exam - Extremities Exam Extremities exam: Present: normal inspection, full ROM, normal capillary refill. Absent: tenderness - Back Exam Back exam: Present: normal inspection, full ROM. Absent: tenderness, rash noted - Neurological Exam Neurological exam: Present: alert, oriented X3, CN II-XII intact, normal gait, reflexes normal - Psychiatric Psychiatric exam: Present: normal affect, normal mood - Skin Skin exam: Present: warm, dry, intact, normal color. Absent: rash ED Course Vital Signs 12/27/18 20:37 Temperature 98.2 F Pulse Rate 99 H Respiratory 20 Rate Blood Pressure 162/79 O2 Sat by Pulse 96 Oximetry ED Medical Decision Making - Medical Decision Making Plan treatment for sinusitis change antibiotic to clindamycin for continue Benadryl and ibuprofen follow with ENT as directed pt verbalized agreement and understanding of discharge plan, pt verbalized agreement and understanding of same. Critical care attestation.: If time is entered above; I have spent that time in minutes in the direct care of this critically ill patient, excluding procedure time. ED Disposition Clinical Impression: Sinusitis Qualifiers: Sinusitis location: maxillary Chronicity: chronic Qualified Code(s): J32.0 - Chronic maxillary sinusitis Disposition: TO HOME OR SELFCARE Is pt being admited?: No Does the pt Need Aspirin: No Condition: Stable Instructions: Sinusitis (ED) Prescriptions: Oxymetazoline 0.05% [Afrin] 2 spray NS BID PRN 3 Days #1 bottle PRN Reason: sinus congestion Clindamycin [Clindamycin CAP] 300 mg PO Q8H 10 Days #30 cap Ibuprofen 800 mg PO TID PRN #30 tablet PRN Reason: pain fever Referrals: MADISON LORENZ MD [Staff Physician] - 3-5 Days Forms: Work/School Release Form(ED) Time of Disposition: 23:19
== END 2018-12-27 23:25 | disposition home or self-care (01) ==
LOC: ED 19:55
DX: J01.90 Acute sinusitis, unspecified (principal); I10 Essential (primary) hypertension; Z86.2 Personal history of diseases of the blood and blood-forming organs and certain disorders involving the immune mechanism; Z98.51 Tubal ligation status; Z79.899 Other long term (current) drug therapy
CPT/HCPCS: 96372; 99282; J1100

== ENCOUNTER 2019-01-05 07:31 | Observation (INO) | payer MEDICAID ==
[2019-01-05] MEDS ORDERED: ASPIRIN PO ONE (07:44)
[2019-01-05 08:00] LABS: Basophils # (Auto) 0.1 K/mm3 (0.0-0.1); Basophils % (Auto) 1.1 % (0.0-1.8); Eosinophils # (Auto) 0.2 K/mm3 (0.0-0.4); Hematocrit 35.4 % (30.3-42.9); Hemoglobin 11.3 gm/dl (10.1-14.3); Lymphocytes % (Auto) 39.8 % (13.4-35.0); Mean Corpuscular HGB Conc 32 % (30-34); Mean Corpuscular Volume 83 fl (79-97); Monocytes # (Auto) 0.5 K/mm3 (0.0-0.8); Monocytes % (Auto) 7.1 % (0.0-7.3); Platelet Count 367 K/mm3 (140-440); Red Blood Count 4.27 M/mm3 (3.65-5.03); Red Cell Distribution Width 16.2 % (13.2-15.2)
[2019-01-05 08:19] LABS: BUN/Creatinine Ratio 15; Blood Urea Nitrogen 12 mg/dL (7-17); Calcium 9.6 mg/dL (8.4-10.2); Hemolysis Index 6
--- NOTE | 2019-01-05 08:40 | XRay Report ---
CHEST 2 VIEWS INDICATION: Chest pain. COMPARISON: 06/21/2018 FINDINGS: PA and lateral chest radiographs again suggest borderline cardiomegaly. Grossly normal mediastinal and hilar contours. Subtle mid to lower lung haziness on the frontal view felt related to breast shadows. No pleural effusions or CHF. Intact bones. CONCLUSION: Slight cardiomegaly without acute chest process, as described. Please correlate. Thank you for the opportunity to participate in this patient's care.
[2019-01-05] MEDS ORDERED: NITRO-BID 2% TP ONE (10:43)
[2019-01-05] MEDS ORDERED: ZOFRAN IV PRN ×2 (10:45→12:47)
[2019-01-05] MEDS ORDERED: MORPHINE IV PRN ×2 (10:45→12:47)
--- NOTE | 2019-01-05 10:51 | Emergency Department Report ---
HPI - General Chief Complaint: Chest Pain Time Seen by Provider: 01/05/19 10:34 - HPI HPI: Room 5 The patient is a 43-year-old female presenting with a chief complaint chest pain. Patient states her past 4 days she's had intermittent left-sided and subs ternal chest discomfort. Patient states there is shortness of breath and nausea associated with her pain. Patient denies vomiting or diaphoresis. Patient states she has had a cough for 2 days that has not been productive. Patient denies history of fever. Patient states the pain improves when sitting up and worsens when lying down. Patient states Pepcid has not helped. Patient states she's never had a stress test or cardiac catheterization Location: [See above] Duration: [See above] Quality: [See above] Severity: Currently 0/10 Modifying factors: [see above] Context: [see above] Mode of transportation: [not driving] ED Past Medical Hx - Past Medical History Hx Hypertension: Yes Additional medical history: anemia - Surgical History Additional Surgical History: Embolization Uterine Fibroid,TUBAL LIGATION - Family History Family history: no significant - Social History Smoking Status: Never Smoker Substance Use Type: None (denies illicit drug use) - Medications Home Medications: Home Medications Medication Instructions Recorded Confirmed Last Taken Type Lisinopril/Hydrochlorothiazide 1 tab PO QDAY #30 06/06/13 11/18/14 Unknown Rx [Zestoretic 10-12.5 mg] Acetaminophen/Codeine 1 tab PO Q6H PRN #12 tab 11/18/14 Unknown Rx [Acetaminophen-Codeine #3 TAB] Promethazine [Phenergan] 25 mg PO Q6H PRN #15 tablet 11/18/14 Unknown Rx Amoxicillin [Trimox CAP] 500 mg PO Q8H #30 capsule 12/17/14 Unknown Rx predniSONE [Deltasone] 20 mg PO BID #8 tab 12/17/14 Unknown Rx Hyoscyamine Subl [Levsin Sl 0.125] 0.125 mg SL Q4HR PRN #10 tablet 01/27/15 Unknown Rx Omeprazole [PriLOSEC] 20 mg PO QDAY #30 capsule. 01/27/15 Unknown Rx Ondansetron [Zofran Odt] 4 mg PO Q6H #10 tab.rapdis 01/27/15 Unknown Rx Lisinopril/Hydrochlorothiazide 1 tab PO QDAY #30 tablet 08/19/15 Unknown Rx [Zestoretic 10-12.5 mg] Naproxen [Naprosyn TAB] 500 mg PO BID #30 tablet 08/19/15 Unknown Rx Acetaminophen/Codeine [Tylenol 1 tab PO Q6H PRN #20 tab 04/17/16 Unknown Rx /Codeine # 3 tab] Prednisone [predniSONE 10 mg 10 mg PO .TAPER #1 tab.ds.pk 04/17/16 Unknown Rx (6-Day Pack, 21 Tabs)] Cetirizine HCl [ZyrTEC] 10 mg PO DAILY #30 capsule 08/19/16 Unknown Rx Fluticasone [Flonase] 1 spray NS QDAY #1 bottle 08/19/16 Unknown Rx Ibuprofen [Motrin 800 MG tab] 800 mg PO Q8H PRN #30 tablet 08/19/16 Unknown Rx guaiFENesin/DEXTROMETHORPHAN 1 tab PO BID #20 tab 08/19/16 Unknown Rx [Mucinex DM ER 600-30 mg TAB] Ibuprofen [Motrin 800 MG tab] 800 mg PO Q8HR #30 tablet 03/11/18 Unknown Rx Triamcinolone Acetonide 15 gm TP BID #15 oint...g. 03/11/18 Unknown Rx [Triamcinolone Acetonide Oint 0.5%] Amoxicillin/K Clav Tab [Augmentin 1 tab PO Q12HR #20 tab 10/27/18 Unknown Rx 875MG TAB] Cetirizine HCl [ZyrTEC] 10 mg PO QAM 14 Days #14 capsule 10/27/18 Unknown Rx Fluticasone [Flonase] 1 spray NS QDAY 14 Days #1 bottle 10/27/18 Unknown Rx Ibuprofen [Motrin] 800 mg PO Q8HR PRN #12 tablet 10/27/18 Unknown Rx methylPREDNISolone [Medrol Dose 4 mg PO DAILY #1 tab.ds.pk 10/27/18 Unknown Rx Alek] Amoxicillin/Potassium Clav 1 each PO BID #20 tablet 11/19/18 Unknown Rx [Augmentin 875-125 Tablet] hydroCHLOROthiazide [HCTZ] 25 mg PO QDAY #30 tablet 11/19/18 Unknown Rx Clindamycin [Clindamycin CAP] 300 mg PO Q8H 10 Days #30 cap 12/27/18 Unknown Rx Ibuprofen 800 mg PO TID PRN #30 tablet 12/27/18 Unknown Rx Oxymetazoline 0.05% [Afrin] 2 spray NS BID PRN 3 Days #1 bottle 12/27/18 Unknown Rx ED Review of Systems ROS: Stated complaint: CHEST PAIN/HEADACHE/WEAK Other details as noted in HPI Constitutional: denies: diaphoresis, fever Eyes: denies: eye pain ENT: denies: throat pain Respiratory: shortness of breath Cardiovascular: chest pain Endocrine: no symptoms reported Gastrointestinal: nausea. denies: vomiting Genitourinary: denies: dysuria Musculoskeletal: denies: back pain Neurological: denies: headache Physical Exam - Physical Exam Vital Signs: Vital Signs 01/05/19 01/05/19 01/05/19 07:39 10:04 10:09 Temperature 97.7 F Pulse Rate 74 64 Respiratory 20 12 20 Rate Blood Pressure 161/74 Blood Pressure [Left] O2 Sat by Pulse 100 100 Oximetry 01/05/19 01/05/19 01/05/19 10:11 10:15 10:31 Temperature Pulse Rate 58 L 56 L Respiratory 19 15 Rate Blood Pressure 126/72 126/72 Blood Pressure 126/72 [Left] O2 Sat by Pulse 100 98 Oximetry Physical Exam: GENERAL: The patient is well-developed well-nourished female lying on stretcher not appearing to be in acute distress. [] HEENT: Normocephalic. Atraumatic. Extraocular motions are intact. Patient has moist mucous membranes. NECK: Supple. Trachea midline CHEST/LUNGS: Clear to auscultation. There is no respiratory distress noted. HEART/CARDIOVASCULAR: Regular. There is no tachycardia. There is no gallop rub or murmur. ABDOMEN: Abdomen is soft, nontender. Patient has normal bowel sounds. There is no abdominal distention. SKIN: There is no rash. There is no edema. There is no diaphoresis. NEURO: The patient is awake, alert, and oriented. The patient is cooperative. The patient has normal speech MUSCULOSKELETAL: There is no evidence of acute injury. ED Course Vital Signs 01/05/19 01/05/19 01/05/19 07:39 10:04 10:09 Temperature 97.7 F Pulse Rate 74 64 Respiratory 20 12 20 Rate Blood Pressure 161/74 Blood Pressure [Left] O2 Sat by Pulse 100 100 Oximetry 0401/05/19 01/05/19 10:11 10:15 10:31 Temperature Pulse Rate 58 L 56 L Respiratory 19 15 Rate Blood Pressure 126/72 126/72 Blood Pressure 126/72 [Left] O2 Sat by Pulse 100 98 Oximetry ED Medical Decision Making - Lab Data Result diagrams: 01/05/19 07:49 01/05/19 07:49 Laboratory Tests 01/05/19 01/05/19 07:49 07:49 WBC 7.5 RBC 4.27 Hgb 11.3 Hct 35.4 MCV 83 MCH 27 L MCHC 32 RDW 16.2 H Plt Count 367 Lymph % (Auto) 39.8 H [place] % (Auto) 7.1 Eos % (Auto) 3.0 Baso % (Auto) 1.1 Lymph # 3.0 [place] # 0.5 Eos # 0.2 Baso # 0.1 Seg Neutrophils % 49.0 Seg Neutrophils # 3.7 Sodium 138 Potassium 3.9 Chloride 99.7 Carbon Dioxide 26 Anion Gap 16 BUN 12 Creatinine 0.8 Estimated GFR > 60 BUN/Creatinine Ratio 15 Glucose 119 H Calcium 9.6 Troponin T < 0.010 - EKG Data -: EKG Interpreted by Me EKG shows normal: sinus rhythm Rate: normal - EKG Data When compared to previous EKG there are: no significant change Interpretation: unchanged when compared t (06/21/2018) - Radiology Data Radiology results: report reviewed (chest x-ray), image reviewed (chest x-ray) interpreted by me: Chest x-ray-no focal infiltrate, no pneumothorax [facility] [address] [place] [address] XRay Report Signed Patient: MADDIE MIRANDA MR#: [id number] : 1975 Acct:[id number] Age/Sex: 43 / F ADM Date: 01/05/19 Loc: ED Attending Dr: Ordering Physician: ED MD BRIONNA Date of Service: 01/05/19 Procedure(s): XR chest routine 2V Accession Number(s): [id number] cc: ED MD BRIONNA Fluoro Time In Minutes: CHEST 2 VIEWS INDICATION: Chest pain. COMPARISON: 06/21/2018 FINDINGS: PA and lateral chest radiographs again suggest borderline cardiomegaly. Grossly normal mediastinal and hilar contours. Subtle mid to lower lung haziness on the frontal view felt related to breast shadows. No pleural effusions or CHF. Intact bones. CONCLUSION: Slight cardiomegaly without acute chest process, as described. Please correlate. Thank you for the opportunity to participate in this patient's care. Transcribed By: RS Dictated By: PETERSON HANSON MD Electronically Authenticated By: PETERSON HANSON MD Signed Date/Time: 01/05/19839 DD/ 1 TD/TT: 01/05/19839 - Differential Diagnosis ACS, pericarditis, GERD Critical care attestation.: If time is entered above; I have spent that time in minutes in the direct care of this critically ill patient, excluding procedure time. ED Disposition Clinical Impression: Chest pain Disposition: -09 OP ADMIT IP TO THIS HOSP Is pt being admited?: Yes Does the pt Need Aspirin: Yes Condition: Fair Instructions: Chest Pain (ED) Referrals: SALLY MULLINS [Other] - 3-5 Days Time of Disposition: 11:07 (hospitalist paged (Dr Gutiérrez))
[2019-01-05] MEDS ORDERED: TYLENOL PO PRN (12:47)
[2019-01-05] MEDS ORDERED: SODIUM CHLORIDE FLUSH SYRINGE 10 ML IV PRN ×2 (12:47)
[2019-01-05] MEDS ORDERED: ULTRAM PO PRN (12:49)
[2019-01-05] MEDS ORDERED: NITROSTAT SL PRN (12:49)
[2019-01-05] MEDS ORDERED: APRESOLINE IV PRN (12:55)
--- NOTE | 2019-01-05 13:43 | History and Physical Report ---
History of Present Illness Date of examination: 01/05/19 Date of admission: 01/05/2019 Chief complaint: Left-sided chest pain History of present illness: Ms. Donis is a 43-year-old -[place] female with history of hypertension who presents to the ED with complaints of intermittent left-sided chest pain and substernal chest discomfort for the past 4 days. She states that the pain originates in the left substernal area and radiates to the apical area. She describes her pain has sharp which is aggravated by laying down flat and is relieved by sitting up. Patient states that she has tried Pepcid to help relieve pain but had no relief. Patient admits to having similar symptoms in June 2018 and was advised to follow up with family resource coordinator. However, her symptoms resolved and she did not follow up. She acknowledges nonproductive cough, dyspnea with activity, and nausea. She denies emesis, productive cough, hemoptysis, fever, chills, or recent sick contact. Review of the medical record shows patient presented to [facility] ED on 06/21/2018 for similar complaints. At that time she complained of left-sided chest tightness, and dyspareunia. Chest x-ray, troponin x2, D-dimer were all negative. EKG did not reveal any ST elevation, ischemia or dysrhythmia. She was given a referral to follow up with at [facility] for outpatient stress test. Past History Past Medical History: anemia (Embolization Uterine Fibroid,TUBAL LIGATION), hypertension Past Surgical History: Other Social history: Family history: no significant family history Medications and Allergies Allergies Allergy/AdvReac Type Severity Reaction Status Date / Time Sulfa (Sulfonamide Allergy Hives Verified 01/05/19 07:46 Antibiotics) Home Medications Medication Instructions Recorded Confirmed Last Taken Type hydroCHLOROthiazide [HCTZ] 25 mg PO QDAY #30 tablet 11/19/18 01/05/19 Unknown Rx Ibuprofen [Motrin 800 MG tab] 800 mg PO TID PRN 01/05/19 01/05/19 Unknown History Active Meds: Active Medications Acetaminophen (Tylenol) 650 mg PO Q4H PRN PRN Reason: Pain MILD(1-3)/Fever >100.5/GIBSON Aspirin (Baby Aspirin) 81 mg PO QDAY RIANA Atorvastatin Calcium (Lipitor) 40 mg PO QHS RIANA Enoxaparin Sodium (Lovenox) 40 mg SUB-Q QDAY@2200 [facility] Hydralazine HCl (Apresoline) 10 mg IV Q4HR PRN PRN Reason: Blood Pressure Hydrochlorothiazide (Hctz) 25 mg PO QDAY RIANA Morphine Sulfate (Morphine) 6 mg IV ONCE PRN PRN Reason: Pain , Severe (7-10) Morphine Sulfate (Morphine) 2 mg IV Q4H PRN PRN Reason: Pain, Moderate (4-6) Stop: 01/06/19 23:59 Nitroglycerin (Nitrostat) 0.4 mg SL Q5M PRN PRN Reason: Chest Pain Ondansetron HCl (Zofran) 8 mg IV ONCE PRN PRN Reason: Nausea Ondansetron HCl (Zofran) 4 mg IV Q8H PRN PRN Reason: Nausea And Vomiting Sodium Chloride (Sodium Chloride Flush Syringe 10 Ml) 10 ml IV BID RIANA Sodium Chloride (Sodium Chloride Flush Syringe 10 Ml) 10 ml IV PRN PRN PRN Reason: LINE FLUSH Tramadol HCl (Ultram) 50 mg PO Q4H PRN PRN Reason: Pain, Moderate (4-6) Review of Systems Constitutional: no weight loss, no weight gain, no fever, no chills, no sweats, no night sweats Ears, nose, mouth and throat: no tinnitis, no epistaxis, no sore throat Breasts: deferred Cardiovascular: chest pain, shortness of breath, dyspnea on exertion, no edema Respiratory: cough, shortness of breath, dyspnea on exertion, no cough with sputum, no excessive sputum, no hemoptysis Gastrointestinal: nausea, no abdominal pain, no vomiting, no diarrhea, no constipation Genitourinary Female: no dyspareunia, no pelvic pain Menstruation: period normal Rectal: no pain, no incontinence, no itching Musculoskeletal: no arm numbness/tingling, no leg numbness/tingling, no frequent falls Integumentary: no rash, no pruritis, no redness, no sores Neurological: no parathesias, no numbness, no tingling, no syncope Psychiatric: no anxiety, no change in sleep habits, no sleep disturbances, no insomnia, no hypersomnia, no change in appetite Endocrine: no polydipsia, no polyuria, no nocturia, no excessive sweating, no weight change Hematologic/Lymphatic: no easy bruising, no easy bleeding Allergic/Immunologic: no allergic rhinitis, no wheezing Exam - Constitutional Vitals: Temp Pulse Resp BP Pulse Ox 97.7 F 50 L 16 142/75 100 01/05/19 07:39 01/05/19 12:30 01/05/19 12:30 01/05/19 12:30 01/05/19 12:30 General appearance: Present: mild distress, obese - EENT Eyes: Present: PERRL ENT: hearing intact, clear oral mucosa - Neck Neck: Present: supple, normal ROM - Respiratory Respiratory effort: normal Respiratory: bilateral: CTA, diminished (bases) - Cardiovascular Heart rate: 66 (bpm/ SR) Rhythm: regular Heart Sounds: Present: S1 & S2. Absent: rub, click - Extremities Extremities: no ischemia, pulses symmetrical, No edema Peripheral Pulses: within normal limits - Abdominal General gastrointestinal: Present: soft, non-tender, non-distended, normal bowel sounds Female genitourinary: Present: deferred - Rectal Rectal Exam: deferred - Integumentary Integumentary: Present: clear, warm, dry - Musculoskeletal Musculoskeletal: gait normal, strength equal bilaterally - Psychiatric Psychiatric: appropriate mood/affect, intact judgment & insight - Neurologic Neurologic: CNII-XII intact, moves all extremities - Allied Health Allied health notes reviewed: nursing Results - Labs CBC & Chem 7: 01/05/19 07:49 01/05/19 07:49 Labs: Laboratory Last Values WBC 7.5 K/mm3 (4.5-11.0) 01/05/19 07:49 RBC 4.27 M/mm3 (3.65-5.03) 01/05/19 07:49 Hgb 11.3 gm/dl (10.1-14.3) 01/05/19 07:49 Hct 35.4 % (30.3-42.9) 01/05/19 07:49 MCV 83 fl (79-97) 01/05/19 07:49 MCH 27 pg (28-32) L 01/05/19 07:49 MCHC 32 % (30-34) 01/05/19 07:49 RDW 16.2 % (13.2-15.2) H 01/05/19 07:49 Plt Count 367 K/mm3 (140-440) 01/05/19 07:49 Lymph % (Auto) 39.8 % (13.4-35.0) H 01/05/19 07:49 [place] % (Auto) 7.1 % (0.0-7.3) 01/05/19 07:49 Eos % (Auto) 3.0 % (0.0-4.3) 01/05/19 07:49 Baso % (Auto) 1.1 % (0.0-1.8) 01/05/19 07:49 Lymph # 3.0 K/mm3 (1.2-5.4) 01/05/19 07:49 [place] # 0.5 K/mm3 (0.0-0.8) 01/05/19 07:49 Eos # 0.2 K/mm3 (0.0-0.4) 01/05/19 07:49 Baso # 0.1 K/mm3 (0.0-0.1) 01/05/19 07:49 Seg Neutrophils % 49.0 % (40.0-70.0) 01/05/19 07:49 Seg Neutrophils # 3.7 K/mm3 (1.8-7.7) 01/05/19 07:49 D-Dimer 287.46 ng/mlDDU (0-234) H 01/05/19 12:17 Sodium 138 mmol/L (137-145) 01/05/19 07:49 Potassium 3.9 mmol/L (3.6-5.0) 01/05/19 07:49 Chloride 99.7 mmol/L (98-107) 01/05/19 07:49 Carbon Dioxide 26 mmol/L (22-30) 01/05/19 07:49 Anion Gap 16 mmol/L 01/05/19 07:49 BUN 12 mg/dL (7-17) 01/05/19 07:49 Creatinine 0.8 mg/dL (0.7-1.2) 01/05/19 07:49 Estimated GFR > 60 ml/min 01/05/19 07:49 BUN/Creatinine Ratio 15 % 01/05/19 07:49 Glucose 119 mg/dL (65-100) H 01/05/19 07:49 Calcium 9.6 mg/dL (8.4-10.2) 01/05/19 07:49 Troponin T < 0.010 ng/mL (0.00-0.029) 01/05/19 10:47 Short CBC 01/05/19 Range/Units 07:49 WBC 7.5 (4.5-11.0) K/mm3 Hgb 11.3 (10.1-14.3) gm/dl Hct 35.4 (30.3-42.9) % Plt Count 367 (140-440) K/mm3 BMP 01/05/19 07:49 Sodium 138 Potassium 3.9 Chloride 99.7 Carbon Dioxide 26 BUN 12 Creatinine 0.8 Glucose 119 H Calcium 9.6 Cardiac Enzymes 01/05/19 01/05/19 Range/Units 07:49 10:47 Troponin T < 0.010 < 0.010 (0.00-0.029) ng/mL - Imaging and Cardiology EKG: image reviewed (sinus rhythm at 66 bpm, nonspecific ST-T) Chest x-ray: report reviewed (FINDINGS: PA and lateral chest radiographs again suggest borderline cardiomegaly. Grossly normal mediastinal and hilar contours. Subtle mid to lower lung haziness on the frontal view felt related to breast shadows. No pleural effusions or CHF. Intact bones. CONCLUSION: Slight cardiomegaly without acute chest process, as described.), image reviewed Assessment and Plan Assessment and plan: Ms. Donis is a 43-year-old -[place] female with history of hypertension who presents to the ED with complaints of intermittent left-sided chest pain and substernal chest discomfort for the past 4 days. Patient will be admitted to telemetry floor. Will order echo with plans for stress testing in the morning for ACS work up. Cardiology consulted. Suspicion of ACS Acute Chest Pain HTN Obesity Plan: Continuous telemetry monitoring Monitor BP Resume home dose hydrochlorothiazide 25 mg daily; IV hydralazine when necessary Start Asprin 81mg daily Start Lipitor 40 mg daily Continue supplemental oxygen and wean as tolerated Pain management Lipid panel pending Echo pending Plans for stress testing in the morning; will be nothing by mouth at midnight Cardiology consult pending Outpatient follow-up for Weight management DVT PPX on Lovenox Advance Directives: No VTE prophylaxis?: Chemical
--- NOTE | 2019-01-05 14:30 | Consultation ---
History of Present Illness Consult date: 01/05/19 Requesting physician: INES FERMIN Consult reason: chest pain History of present illness: The pt is a 43 YO female with a past medical history of HTN and obesity. She is previously unknown to our practice. She presented with c/o chest pain for 4 days prior to arrival. She describes her chest pain as an intermittent left-sided "bubbling" and aching pain which sometimes starts in her chest and moves down to her stomach and which sometimes starts in her stomach and moves into her chest. The pain is aggravated by laying flat and alleviated by sitting upright. This morning, she developed some SOB and left arm tingling associated with the pain and thus she decided to seek medical attention. She denies any palpitations, n/v, diaphoresis, dizziness or syncope. She denies any prior known cardiac issues or cardiac w/u. She admits that she has not been compliant with her anti- hypertensive regimen recently. Her PCP recently switched her from losartan to HCTZ but she ran out of HCTZ and has been intermittently taking losartan instead. Her SBPs have been reportedly 160s at home. ECG with NSR and NAF, Man negative for AMI, DDimer minimally elevated. Additionally, she states that she is currently on antibiotics for treatment of sinusitis. Past History Past Medical History: hypertension Past Surgical History: , Other (tubal ligation) Social history: , lives with family. denies: smoking, alcohol abuse, prescription drug abuse Family history: no significant family history Medications and Allergies Allergies Allergy/AdvReac Type Severity Reaction Status Date / Time Sulfa (Sulfonamide Allergy Hives Verified 01/05/19 07:46 Antibiotics) Home Medications Medication Instructions Recorded Confirmed Last Taken Type hydroCHLOROthiazide [HCTZ] 25 mg PO QDAY #30 tablet 11/19/18 01/05/19 Unknown Rx Ibuprofen [Motrin 800 MG tab] 800 mg PO TID PRN 01/05/19 01/05/19 Unknown History Active Meds: Active Medications Acetaminophen (Tylenol) 650 mg PO Q4H PRN PRN Reason: Pain MILD(1-3)/Fever >100.5/GIBSON Aspirin (Baby Aspirin) 81 mg PO QDAY RIANA Atorvastatin Calcium (Lipitor) 40 mg PO QHS RIANA Enoxaparin Sodium (Lovenox) 40 mg SUB-Q QDAY@2200 RIANA Hydralazine HCl (Apresoline) 10 mg IV Q4HR PRN PRN Reason: Blood Pressure Hydrochlorothiazide (Hctz) 25 mg PO QDAY [facility] Morphine Sulfate (Morphine) 6 mg IV ONCE PRN PRN Reason: Pain , Severe (7-10) Morphine Sulfate (Morphine) 2 mg IV Q4H PRN PRN Reason: Pain, Moderate (4-6) Stop: 01/06/19 23:59 Nitroglycerin (Nitrostat) 0.4 mg SL Q5M PRN PRN Reason: Chest Pain Ondansetron HCl (Zofran) 8 mg IV ONCE PRN PRN Reason: Nausea Ondansetron HCl (Zofran) 4 mg IV Q8H PRN PRN Reason: Nausea And Vomiting Sodium Chloride (Sodium Chloride Flush Syringe 10 Ml) 10 ml IV BID RIANA Sodium Chloride (Sodium Chloride Flush Syringe 10 Ml) 10 ml IV PRN PRN PRN Reason: LINE FLUSH Tramadol HCl (Ultram) 50 mg PO Q4H PRN PRN Reason: Pain, Moderate (4-6) Review of Systems Constitutional: no weight loss, no weight gain, no fever, no chills, no sweats Ears, nose, mouth and throat: sinus pressure (recent sinusitis), sinus pain (recent sinusitis), no ear pain, no nose pain Cardiovascular: chest pain, shortness of breath, high blood pressure, no orthopnea, no palpitations, no rapid/irregular heart beat, no edema, no syncope, no lightheadedness, no paroxysmal nocturnal dyspnea, no leg edema Respiratory: shortness of breath, no cough, no congestion, no wheezing, no pain on inspiration Gastrointestinal: no abdominal pain, no nausea, no vomiting, no diarrhea, no constipation, no change in bowel habits Genitourinary Female: no pelvic pain, no flank pain, no dysuria, no urinary frequency, no urgency Musculoskeletal: no neck stiffness, no neck pain, no shooting arm pain, no arm numbness/tingling, no low back pain Integumentary: no rash, no pruritis, no redness, no sores, no wounds Neurological: no head injury, no paralysis, no weakness, no parathesias, no numbness, no tingling, no seizures, no syncope Psychiatric: no anxiety Endocrine: no cold intolerance, no heat intolerance Hematologic/Lymphatic: no easy bruising, no easy bleeding Allergic/Immunologic: no urticaria, no wheezing Physical Examination Vital Signs Temp Pulse Resp BP Pulse Ox 97.7 F 74 20 161/74 100 01/05/19 07:39 01/05/19 07:39 01/05/19 07:39 01/05/19 07:39 01/05/19 07:39 General appearance: no acute distress HEENT: Positive: PERRL, Normocephaly, Mucus Membranes Moist Neck: Positive: neck supple, trachea midline Cardiac: Positive: Reg Rate and Rhythm, S1/S2 Lungs: Positive: clear to auscultation Neuro: Positive: Grossly Intact Abdomen: Positive: Soft. Negative: Tender Skin: Negative: Rash, Wound Musculoskeletal: No Pain Extremities: Absent: edema Results 01/05/19 07:49 01/05/19 07:49 CBC 01/05/19 Range/Units 07:49 WBC 7.5 (4.5-11.0) K/mm3 RBC 4.27 (3.65-5.03) M/mm3 Hgb 11.3 (10.1-14.3) gm/dl Hct 35.4 (30.3-42.9) % Plt Count 367 (140-440) K/mm3 Lymph # 3.0 (1.2-5.4) K/mm3 [place] # 0.5 (0.0-0.8) K/mm3 Eos # 0.2 (0.0-0.4) K/mm3 Baso # 0.1 (0.0-0.1) K/mm3 Comprehensive Metabolic Panel 01/05/19 Range/Units 07:49 Sodium 138 (137-145) mmol/L Potassium 3.9 (3.6-5.0) mmol/L Chloride 99.7 (98-107) mmol/L Carbon Dioxide 26 (22-30) mmol/L BUN 12 (7-17) mg/dL Creatinine 0.8 (0.7-1.2) mg/dL Glucose 119 H (65-100) mg/dL Calcium 9.6 (8.4-10.2) mg/dL - Imaging and Cardiology Echo: pending EKG: report reviewed, image reviewed EKG interpretations - Telemetry EKG Rhythm: Sinus Rhythm - EKG Sinus rhythms and dysrhythmias: sinus rhythm Assessment and Plan Atypical chest pain ECG with NSR and NAF, Man negative for AMI. Pt denies any prior cardiac issues, including CAD, AMI or HF. Obtain echo. Plan for lexiscan MPI stress test in AM. NPO after MN. Uncontrolled HTN Home HCTZ resumed per primary. Monitor BPs and optimize anti-hypertensive r egimen as necessary. Obesity Noncompliance with medication regimen Minimally elevated DDimer Further eval per primary. The patient has been seen in conjunction with Dr. Vincent who agrees with the assessment and plan of care.
[2019-01-05] MEDS: SODIUM CHLORIDE FLUSH SYRINGE 10 ML IV SCH (21:53)
[2019-01-05] MEDS ORDERED: LOVENOX SUB-Q SCH (22:00)
[2019-01-06] MEDS ORDERED: LEXISCAN IV ONE ×2 (08:01→08:12)
[2019-01-06] MEDS ORDERED: HCTZ PO SCH (10:00)
[2019-01-06] MEDS ORDERED: BABY ASPIRIN PO SCH (10:00)
--- NOTE | 2019-01-06 11:54 | Cat Scan Report ---
CT examination of the chest after IV contrast. Multiplanar angiographic image post processing. HISTORY: Elevated d-dimer COMPARISONS: 2 view chest 01/05/[address] 11/18/2014 FINDINGS: Slight cardiomegaly without pericardial effusion. Intact normal caliber thoracic aorta. Normal-appearing esophagus. No hilar mass or mediastinal adenop athy. The visualized pulmonary arteries are diffusely patent bilaterally. There is no filling defect to sug gest PE. The examination is limited by relatively equal IV contrast density in the pulmonary arteries and pulmonary veins. Large body habitus also limits the examination. Increased soft tissue attenuate s the CT x-ray beam and degrades image quality. Early IV contrast excretion versus 2 mm nonobstructing right renal calculus. No acute fracture. No pneumothorax or pleural effusion. No focal pulmonary consolidation. No definite lung mass or pulmonary nodule. Small benign calcified granuloma left midlung. IMPRESSION: Slight cardiomegaly Early IV contrast excretion versus 2 mm nonobstructing right renal calculus No CT evidence of pulmonary artery embolic disease This document is electronically signed by Stephane Sullivan MD., January 06 2019 11:52:57 AM ET
[2019-01-06 11:59] VITALS: BP 136/73
--- NOTE | 2019-01-06 12:11 | Progress Note ---
Assessment and Plan Treadmill exercise stress test this morning was negative for ischemia. Nuclear imaging report is pending. - Patient Problems (1) Chest pain Current Visit: Yes Status: Acute (2) Uncontrolled hypertension Current Visit: Yes Status: Acute (3) Elevated d-dimer Current Visit: Yes Status: Acute Subjective Date of service: 01/06/19 Principal diagnosis: Atypical CP, Uncontrolled HTN Interval history: No chest pain this morning. Objective Vital Signs Temp Pulse Pulse Resp BP Pulse Ox 01/06/19 11:46 97.6 F 18 136/73 01/06/19 09:02 127/61 01/06/19 07:37 98.1 F 66 18 150/74 99 01/06/19 06:00 63 01/06/19 04:31 98.1 F 63 20 110/55 95 01/05/19 23:58 98.2 F 77 20 145/76 91 01/05/19 22:36 77 01/05/19 22:00 80 20 99 01/05/19 19:57 98.2 F 80 20 143/76 99 01/05/19 19:33 99 01/05/19 16:15 97.6 F 72 18 132/71 100 01/05/19 14:21 65 9 L 147/72 100 01/05/19 14:11 56 L 18 147/72 100 01/05/19 14:00 52 L 17 147/72 99 01/05/19 13:30 54 L 10 L 138/75 100 01/05/19 13:00 58 L 17 136/74 99 01/05/19 12:30 50 L 16 142/75 100 - Physical Examination General: No Apparent Distress HEENT: Positive: EOMI, Normocephaly, Mucus Membranes Moist Neck: Positive: neck supple, trachea midline Cardiac: Positive: Reg Rate and Rhythm, S1/S2 Lungs: Positive: clear to auscultation Neuro: Positive: Grossly Intact Abdomen: Positive: Soft, Active Bowel Sounds. Negative: Tender Skin: Positive: Clear. Negative: Rash Musculoskeletal: Normal Range of Motion Extremities: Absent: edema - Imaging and Cardiology Echo: pending - Telemetry EKG Rhythm: Sinus Rhythm - EKG Sinus rhythms and dysrhythmias: sinus rhythm
[2019-01-06] MEDS: SODIUM CHLORIDE FLUSH SYRINGE 10 ML IV SCH (12:27)
[2019-01-06 13:23] LABS: Chol/HDL Ratio 3.09 %
--- NOTE | 2019-01-06 14:25 | Treadmill Report ---
REASON FOR STUDY: Chest pain. STRESS TEST PROTOCOL: The patient completed 7 minutes and 49 seconds of a Ben protocol. She attained a peak heart rate of 180 per minute, which is 102% of her age predicted maximum (8.9 METs). No ischemic ECG changes. No chest pain. No arrhythmias. The test was terminated due to fatigue and shortness of breath. IMPRESSION: Negative stress test. Nuclear imaging report to follow. JOB# [id number] SARAH/NTS
--- NOTE | 2019-01-06 14:43 | Discharge Summary ---
Providers - Providers Date of Admission: 01/05/19 12:47 Date of discharge: 01/06/19 Attending physician: BETH GARCIA 01/05/19 12:49 Consult to Physician [CONS] Routine Comment: Consulting Provider: HAIDER PIERRE Physician Instructions: Reason For Exam: chest pain Hospitalization Condition: Fair Hospital course: patient with hypertension presented with chest pain. She was seen and evaluated in medicine department. EKG was unremarkable. Troponin was normal. Patient was given aspirin and admitted to rule out acute coronary syndrome. Stress test done the next day was normal. Chest pain determined to be due to GERD. She was then discharged home Disposition: DC- TO HOME OR SELFCARE - Discharge Diagnoses (1) GERD (gastroesophageal reflux disease) Status: Acute (2) Chest pain Status: Acute (3) Uncontrolled hypertension Status: Acute Core Measure Documentation - Palliative Care Palliative Care/ Comfort Measures: Not Applicable - Core Measures Any of the following diagnoses?: none Exam - Constitutional Vitals: Temp Pulse Resp BP Pulse Ox 97.6 F 66 18 136/73 99 01/06/19 11:46 01/06/19 07:37 01/06/19 11:46 01/06/19 11:46 01/06/19 07:37 Plan Activity: advance as tolerated Diet: low fat, low cholesterol, low salt Additional Instructions: 1.Follow up with PCP in 1 week Follow up with: SALLY MULLINS [Other] - 3-5 Days Prescriptions: hydroCHLOROthiazide [HCTZ] 25 mg PO QDAY #30 tablet Omeprazole 20 mg PO DAILY #30 capsule.
--- NOTE | 2019-01-06 20:27 | Treadmill Report ---
THALLIUM REPORT REASON FOR STUDY: Chest pain. IMAGING PROTOCOL: The patient received 10 mCi of Tc-99m tetrofosmin for rest imaging, and 25 mCi of Tc-99m tetrofosmin for stress imaging. Imaging for all procedures was completed 30-90 minutes following the initial injection of Technetium 99m Tetrofosmin. SPECT imaging in the 180 degree arc was performed in the right anterior oblique projection. Computerized reconstruction of the images was performed for analysis. NUCLEAR IMAGING RESULTS: Technically limited study due to soft tissue attenuation artifact. Normal left ventricular cavity size with no change from stress to rest. Distribution of radionuclide within the left ventricle revealed a medium-sized area of photo-induction involving the apex and anterior wall. The degree of photo-induction is moderate. Rest imaging does not show any significant improvement in this defect. Gated SPECT imaging revealed normal global LV systolic function with no significant wall motion abnormalities. The calculated left ventricular ejection fraction is 65%. IMPRESSION: Technically limited study. Medium size fixed apical and anterior defect. Normal global LV systolic function with no significant wall motion abnormalities. EF 65%. 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 However, in the absence of significant wall motion abnormalities, the defect noted in this patient is probably artifactual. No evidence of significant stress-induced ischemia. [facility]# [id number] SARAH/COY MONROY
== END 2019-01-06 15:43 | disposition home or self-care (01) ==
LOC: ED 07:31 → 4A 12:47
PROVIDERS: ADMIT Internal Medicine; ATTEND Internal Medicine
DX: R07.89 Other chest pain (principal); I10 Essential (primary) hypertension; E66.9 Obesity, unspecified
CPT/HCPCS: 36415; 71046; 71275; 78452; 80048; 80061; 83036; 84484; 85025; 85379; 93005; 93010; 93017; 93306; 94760; 96372; 99285; A9270; A9502; G0378; J1650; J2785; Q9967; J2270; J2405

== ENCOUNTER 2019-04-24 12:06 | Emergency (ER) | payer MEDICAID ==
--- NOTE | 2019-04-24 12:54 | Event Note ---
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 Further treatment and workup at subsequent clinical providers discretion. Patient/guardian urged not to elope from the ED as their condition may be serious if not clinically assessed and managed. Initial orders include: labs, UA
[2019-04-24 12:55] VITALS: BP 151/80
[2019-04-24 13:12] LABS: Basophils # (Auto) 0.1 K/mm3 (0.0-0.1); Basophils % (Auto) 1.5 % (0.0-1.8); Eosinophils # (Auto) 0.2 K/mm3 (0.0-0.4); Hematocrit 34.4 % (30.3-42.9); Hemoglobin 10.9 gm/dl (10.1-14.3); Lymphocytes # (Auto) 2.4 K/mm3 (1.2-5.4); Lymphocytes % (Auto) 37.9 % (13.4-35.0); Mean Corpuscular HGB Conc 32 % (30-34); Mean Corpuscular Volume 81 fl (79-97); Monocytes # (Auto) 0.4 K/mm3 (0.0-0.8); Monocytes % (Auto) 5.5 % (0.0-7.3); Platelet Count 344 K/mm3 (140-440); Red Blood Count 4.24 M/mm3 (3.65-5.03); Red Cell Distribution Width 15.9 % (13.2-15.2)
[2019-04-24 13:36] LABS: Alanine Aminotransferase 11 units/L (7-56); Albumin 4.1 g/dL (3.9-5); BUN/Creatinine Ratio 11; Blood Urea Nitrogen 8 mg/dL (7-17); Calcium 9.4 mg/dL (8.4-10.2); Hemolysis Index 3
[2019-04-24 13:47] LABS: Bilirubin,Urine NEG (Negative); Blood,Urine NEG (Negative); Color,Urine Yellow (Yellow); Mucus,Urine FEW /HPF; Protein,Urine <15 mg/dL mg/dL (Negative); Urobilinogen,Urine < 2.0 mg/dL (<2.0)
[2019-04-24 13:50] LABS: HCG Qualitative,Urine Negative (Negative)
[2019-04-24] MEDS ORDERED: IBUPROFEN PO ONE (14:09)
--- NOTE | 2019-04-24 15:08 | Emergency Department Report ---
Blank Doc - Documentation Documentation: Upon entering the room, patient requested for a female "doctor" to examined and see patient. Stated that a male doctor will not understand her pain or complaint. Patient will be given to a female provider once they arrive.
== END 2019-04-24 15:20 | disposition left against medical advice (07) ==
LOC: ED 12:06
DX: R10.2 Pelvic and perineal pain (principal); R11.0 Nausea
CPT/HCPCS: 36415; 80053; 81001; 81025; 83690; 85025; 99283

== ENCOUNTER 2019-04-25 05:39 | Emergency (ER) | payer MEDICAID ==
[2019-04-25 05:50] VITALS: BP 135/99
[2019-04-25 06:46] LABS: Basophils # (Auto) 0.1 K/mm3 (0.0-0.1); Basophils % (Auto) 0.8 % (0.0-1.8); Eosinophils # (Auto) 0.2 K/mm3 (0.0-0.4); Eosinophils % (Auto) 3.2 % (0.0-4.3); Hematocrit 32.3 % (30.3-42.9); Hemoglobin 10.4 gm/dl (10.1-14.3); Lymphocytes # (Auto) 2.5 K/mm3 (1.2-5.4); Lymphocytes % (Auto) 39.9 % (13.4-35.0); Mean Corpuscular HGB Conc 32 % (30-34); Mean Corpuscular Volume 81 fl (79-97); Monocytes # (Auto) 0.4 K/mm3 (0.0-0.8); Monocytes % (Auto) 6.6 % (0.0-7.3); Platelet Count 348 K/mm3 (140-440); Red Blood Count 3.98 M/mm3 (3.65-5.03)
--- NOTE | 2019-04-25 07:03 | Cat Scan Report ---
CT ABDOMEN AND PELVIS WITHOUT CONTRAST HISTORY: L flank radiating to lower back. COMPARISON: CT abdomen/pelvis from 11/18/2014 TECHNIQUE: CT images of the abdomen and pelvis were obtained without administration of intravenous co ntrast. All CT scans at this location are performed using CT dose reduction for ALARA by means of au tomated exposure control. FINDINGS: Lungs/bones: Lung bases are clear. 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 Abdomen/pelvis: The liver is mildly enlarged with no focal mass. The gallbladder, spleen, pancreas, adrenals, right kidney, and proximal GI tract appear unremarkable. There is nonobstructive nephrolith iasis which measures 2 mm in the lower pole the left kidney. No ureteral stone or hydronephrosis iden tified. The bladder is mostly collapsed. The uterus is lobulated and contains calcified fibroids. No pelvic f ree fluid and no acute colonic abnormality identified. IMPRESSION: 1. No acute abnormality identified. 2. Stable incidental findings as above. Signer Name: Beto Barry MD Signed: 04/25/2019 6:58 AM Workstation Name: [id number]
[2019-04-25 07:21] LABS: Alanine Aminotransferase 12 units/L (7-56); Albumin 3.8 g/dL (3.9-5); BUN/Creatinine Ratio 10; Blood Urea Nitrogen 8 mg/dL (7-17); Calcium 9.4 mg/dL (8.4-10.2); Hemolysis Index 4
[2019-04-25 08:01] LABS: Bacteria,Urine 2+ /HPF (Negative); Bilirubin,Urine NEG (Negative); Blood,Urine NEG (Negative); Calcium Oxalate Crystals,Urine 2+; Color,Urine Yellow (Yellow); Mucus,Urine FEW /HPF; Protein,Urine <15 mg/dL mg/dL (Negative); Urobilinogen,Urine < 2.0 mg/dL (<2.0)
--- NOTE | 2019-04-25 08:31 | Emergency Department Report ---
ED Abdominal Pain HPI - General Chief Complaint: Abdominal Pain Stated Complaint: PELVIC/BACK PAIN Time Seen by Provider: 04/25/19 07:26 Source: patient Mode of arrival: Ambulatory Limitations: No Limitations - History of Present Illness Initial Comments: 43 yo F presents to ED with complaint of left flank pain x 1 week. Pt reports LLQ pain radiating to the left back. Reports nausea. Denies vomiting, fever, dysuria, hematuria, urinary frequency, vag bleeding or discharge. Pt states she was seen and examined by her OB on yesterday and told it might be a kidney stone. Pt states her physician ordered outpt scans but pt states she could not wait that long b/c the pain was unbearable, so she presented to the ED. MD Complaint: abdominal pain -: week(s) (1) Location: LLQ Radiation: L flank Migration to: no migration Severity: severe Quality: sharp Consistency: intermittent Improves With: nothing Worsens With: nothing Associated Symptoms: nausea. denies: vomiting, diarrhea, dysuria, hematuria - Related Data Home Medications Medication Instructions Recorded Confirmed Last Taken Ibuprofen [Motrin 800 MG tab] 800 mg PO TID PRN 01/05/19 01/05/19 Unknown Previous Rx's Medication Instructions Recorded Last Taken Type Omeprazole 20 mg PO DAILY #30 capsule. 01/06/19 Unknown Rx hydroCHLOROthiazide [HCTZ] 25 mg PO QDAY #30 tablet 01/06/19 Unknown Rx Naproxen [Naprosyn] 500 mg PO BID #20 tablet 04/25/19 Unknown Rx traMADol [Ultram] 50 mg PO Q6HR PRN #7 tablet 04/25/19 Unknown Rx Allergies Allergy/AdvReac Type Severity Reaction Status Date / Time Sulfa (Sulfonamide Allergy Hives Verified 01/05/19 07:46 Antibiotics) ED Review of Systems ROS: Stated complaint: PELVIC/BACK PAIN Other details as noted in HPI Comment: All other systems reviewed and negative Constitutional: denies: chills, fever Gastrointestinal: abdominal pain, nausea. denies: vomiting, diarrhea Genitourinary: denies: dysuria, frequency, hematuria, discharge, abnormal menses Musculoskeletal: back pain ED Past Medical Hx - Past Medical History Previous Medical History?: Yes Hx Hypertension: Yes Additional medical history: anemia - Surgical History Past Surgical History?: Yes Additional Surgical History: Embolization Uterine Fibroid,TUBAL LIGATION - Social History Smoking Status: Never Smoker Substance Use Type: None - Medications Home Medications: Home Medications Medication Instructions Recorded Confirmed Last Taken Type Ibuprofen [Motrin 800 MG tab] 800 mg PO TID PRN 01/05/19 01/05/19 Unknown Histo ry Omeprazole 20 mg PO DAILY #30 capsule. 01/06/19 Unknown Rx hydroCHLOROthiazide [HCTZ] 25 mg PO QDAY #30 tablet 01/06/19 Unknown Rx Naproxen [Naprosyn] 500 mg PO BID #20 tablet 04/25/19 Unknown Rx traMADol [Ultram] 50 mg PO Q6HR PRN #7 tablet 04/25/19 Unknown Rx ED Physical Exam - General Limitations: No Limitations General appearance: alert, in no apparent distress - Head Head exam: Present: atraumatic, normocephalic - Eye Eye exam: Present: normal appearance, PERRL, EOMI - ENT ENT exam: Present: mucous membranes moist - Neck Neck exam: Present: normal inspection - Respiratory Respiratory exam: Present: normal lung sounds bilaterally. Absent: respiratory distress - Cardiovascular Cardiovascular Exam: Present: regular rate, normal rhythm - GI/Abdominal GI/Abdominal exam: Present: soft, tenderness (mild LLQ tenderness). Absent: distended - Extremities Exam Extremities exam: Present: normal inspection - Back Exam Back exam: Absent: CVA tenderness (R), CVA tenderness (L) - Neurological Exam Neurological exam: Present: alert, oriented X3 - Psychiatric Psychiatric exam: Present: normal affect, normal mood - Skin Skin exam: Present: warm, dry, intact, normal color ED Course Vital Signs 04/25/19 05:45 Temperature 97.6 F Pulse Rate 82 Respiratory 18 Rate Blood Pressure 135/99 O2 Sat by Pulse 99 Oximetry ED Medical Decision Making - Lab Data Result diagrams: 04/25/19 06:23 04/25/19 06:23 - Radiology Data Radiology results: report reviewed, image reviewed - Medical Decision Making - CT shows stones in kidney, but no ureteral stones or hydronephrosis - US negative for any pelvis pathology on left side; right ovarian cyst present - possible that pt already passed a stone on the left; no evidence of UTI - return precautions given - outpt f/u advised - Differential Diagnosis kidney stone, ovarian cyst, ovarian torsion Critical care attestation.: If time is entered above; I have spent that time in minutes in the direct care of this critically ill patient, excluding procedure time. ED Disposition Clinical Impression: Kidney stone, Ovarian cyst Disposition: - TO HOME OR SELFCARE Is pt being admited?: No Condition: Stable Instructions: Kidney Stones (ED), Ovarian Cyst (ED) Referrals: RACQUEL GORDON MD [Staff Physician] - 3-5 Days PRIMARY CARE, [Referring] - 3-5 Days
[2019-04-25] MEDS ORDERED: TORADOL IM ONE (08:36)
--- NOTE | 2019-04-25 10:04 | Ultrasound Report ---
ULTRASOUND PELVIS DUPLEX DOPPLER COMPLETE ULTRASOUND TRANSVAGINAL HISTORY: Left pelvic pain, left flank pain down to the left pelvis. TECHNIQUE: Transabdominal and transvaginal ultrasound with color and spectral Doppler imaging. COMPARISON: CT abdomen pelvis without contrast performed 04/25/2019. FINDINGS: The uterus is anteverted. The uterus measures 10.2 x 5.9 x 6.9 cm. A partially calcified fibroid naresh uring 2.0 x 1.0 cm is noted in the posterior fundus. A noncalcified intramural fibroids identified in the posterior wall measuring 2.1 x 1.7 cm. No large submucosal fibroid. Normal cervix. The endometrial stripe is unremarkable measuring 6 mm. The right ovary measures 3.4 x 2.7 x 2.7 cm. A simple 2.4 cm cyst is identified. The left ovary is unremarkable measuring 2.1 x 1.1 x 1.4 cm. No pelvic fluid collection. Spectral Doppler waveforms demonstrate flow to both ovaries. IMPRESSION: Mild uterine fibroid disease. 2.4 cm simple cyst in the right ovary. Signer Name: Alejandro Underwood Jr, MD Signed: 04/25/2019 9:59 AM Workstation Name: [id number]
== END 2019-04-25 10:47 | disposition home or self-care (01) ==
LOC: ED 05:39
DX: N83.201 Unspecified ovarian cyst, right side (principal); N20.0 Calculus of kidney; I10 Essential (primary) hypertension; Z98.51 Tubal ligation status; Z86.2 Personal history of diseases of the blood and blood-forming organs and certain disorders involving the immune mechanism; Z79.899 Other long term (current) drug therapy; Z88.2 Allergy status to sulfonamides
CPT/HCPCS: 36415; 74176; 76830; 80053; 81001; 83690; 84703; 85025; 93975; 96372; 99284; J1885

== ENCOUNTER 2019-11-23 16:30 | Emergency (ER) | payer MEDICAID ==
[2019-11-23 19:26] LABS: Bacteria,Urine 1+ /HPF (Negative); Bilirubin,Urine NEG (Negative); Blood,Urine NEG (Negative); Color,Urine Yellow (Yellow); Mucus,Urine FEW /HPF; Protein,Urine <15 mg/dL mg/dL (Negative); Urobilinogen,Urine < 2.0 mg/dL (<2.0)
[2019-11-23 19:27] LABS: HCG Qualitative,Urine Negative (Negative)
[2019-11-23 19:41] LABS: Basophils # (Auto) 0.2 K/mm3 (0.0-0.1); Basophils % (Auto) 1.8 % (0.0-1.8); Eosinophils # (Auto) 0.3 K/mm3 (0.0-0.4); Eosinophils % (Auto) 3.5 % (0.0-4.3); Hematocrit 34.9 % (30.3-42.9); Hemoglobin 10.9 gm/dl (10.1-14.3); Lymphocytes % (Auto) 35.2 % (13.4-35.0); Mean Corpuscular HGB Conc 31 % (30-34); Mean Corpuscular Volume 81 fl (79-97); Monocytes # (Auto) 0.4 K/mm3 (0.0-0.8); Monocytes % (Auto) 4.5 % (0.0-7.3); Platelet Count 381 K/mm3 (140-440); Red Blood Count 4.31 M/mm3 (3.65-5.03); Red Cell Distribution Width 15.7 % (13.2-15.2)
[2019-11-23 20:00] LABS: BUN/Creatinine Ratio 15; Blood Urea Nitrogen 12 mg/dL (7-17); Calcium 9.5 mg/dL (8.4-10.2); Hemolysis Index 9
--- NOTE | 2019-11-23 21:12 | Cat Scan Report ---
CT abdomen pelvis wo con INDICATION: left flank pain. TECHNIQUE: All CT scans at this location are performed using the following dose modulation technique: Automated exposure control. CONTRAST: None. COMPARISON: None available. CT ABDOMEN: Evaluation the parenchymal organs demonstrates 2 nonobstructing stones with the larger me asuring 2 mm. The remaining parenchymal organs are unremarkable. Negative for abdominal mass, fluid or inflammation. The bowel is not dilated or thickened. CT PELVIS: Negative for distal ureteral stone, pelvic fluid collection or inflammation. The appendix is normal. IMPRESSION: Small nonobstructing left renal stones. Signer Name: Timoteo Schuster MD Signed: 11/23/2019 9:07 PM Workstation Name: [id number]
--- NOTE | 2019-11-23 21:31 | Emergency Department Report ---
ED General Adult HPI - General Chief complaint: Abdominal Pain Stated complaint: LEFT SIDE PAIN Time Seen by Provider: 11/23/19 18:52 Source: patient Mode of arrival: Ambulatory Limitations: No Limitations - History of Present Illness Initial comments: Patient is a 44-year-old female presents emergency room with complaints of left flank pain that began last week. She states that she has urinary frequency. Patient states that she has come to the emergency room several times in the past for this pain and was diagnosed with a UTI on 1 occasion and nephrolithiasis during another visit. She states that she completed a course of Macrobid given by her primary care physician and that resolved her discomfort. She states that her discomfort began again last week. She denies any vomiting, diarrhea, abdominal pain, dysuria, difficulty urinating, unexplained weight loss, fever. She has a past medical history of hypertension. She states he has an allergy to sulfa. She states her last menstrual cycle was last month. Patient states that she has not seen an [facility]. - Related Data Home Medications Medication Instructions Recorded Confirmed Last Taken Ibuprofen [Motrin 800 MG tab] 800 mg PO TID PRN 01/05/19 01/05/19 Unknown Previous Rx's Medication Instructions Recorded Last Taken Type Omeprazole 20 mg PO DAILY #30 capsule. 01/06/19 Unknown Rx hydroCHLOROthiazide [HCTZ] 25 mg PO QDAY #30 tablet 01/06/19 Unknown Rx Naproxen [Naprosyn] 500 mg PO BID #20 tablet 04/25/19 Unknown Rx traMADoL [Ultram] 50 mg PO Q6HR PRN #7 tablet 04/25/19 Unknown Rx Ciprofloxacin HCl [Ciprofloxacin 500 mg PO BID 10 Days #20 tab 10/04/19 Unknown Rx TAB] Ketorolac [Toradol] 10 mg PO Q6H PRN #12 tablet 10/04/19 Unknown Rx Ciprofloxacin HCl [Ciprofloxacin 500 mg PO Q12HR #14 tab 10/06/19 Unknown Rx TAB] Acetaminophen [Acetaminophen ER 650 mg PO Q8HR PRN #14 tablet.er 11/23/19 Unknown Rx TAB] Ondansetron [Zofran Odt] 4 mg PO Q8HR PRN #14 tab.rapdis 11/23/19 Unknown Rx Allergies Allergy/AdvReac Type Severity Reaction Status Date / Time Sulfa (Sulfonamide Allergy Hives Verified 04/26/19 07:46 Antibiotics) ED Review of Systems ROS: Stated complaint: LEFT SIDE PAIN Other details as noted in HPI Comment: All other systems reviewed and negative ED Past Medical Hx - Past Medical History Previous Medical History?: Yes Hx Hypertension: Yes Additional medical history: anemia - Surgical History Past Surgical History?: Yes Additional Surgical History: Embolization Uterine Fibroid,TUBAL LIGATION - Social History Smoking Status: Never Smoker Substance Use Type: None - Medications Home Medications: Home Medications Medication Instructions Recorded Confirmed Last Taken Type Ibuprofen [Motrin 800 MG tab] 800 mg PO TID PRN 01/05/19 01/05/19 Unknown History Omeprazole 20 mg PO DAILY #30 capsule.dr 01/06/19 Unknown Rx hydroCHLOROthiazide [HCTZ] 25 mg PO QDAY #30 tablet 01/06/19 Unknown Rx Naproxen [Naprosyn] 500 mg PO BID #20 tablet 04/25/19 Unknown Rx traMADoL [Ultram] 50 mg PO Q6HR PRN #7 tablet 04/25/19 Unknown Rx Ciprofloxacin HCl [Ciprofloxacin 500 mg PO BID 10 Days #20 tab 10/04/19 Unknown Rx TAB] Ketorolac [Toradol] 10 mg PO Q6H PRN #12 tablet 10/04/19 Unknown Rx Ciprofloxacin HCl [Ciprofloxacin 500 mg PO Q12HR #14 tab 10/06/19 Unknown Rx TAB] Acetaminophen [Acetaminophen ER 650 mg PO Q8HR PRN #14 tablet.er 11/23/19 Unknown Rx TAB] Ondansetron [Zofran Odt] 4 mg PO Q8HR PRN #14 tab.rapdis 11/23/19 Unknown Rx ED Physical Exam - General Limitations: No Limitations General appearance: alert, in no apparent distress - Head Head exam: Present: atraumatic, normocephalic - Eye Eye exam: Present: normal appearance - ENT ENT exam: Present: mucous membranes moist - Respiratory Respiratory exam: Present: normal lung sounds bilaterally. Absent: respiratory distress, wheezes, rales, rhonchi, stridor, chest wall tenderness, accessory muscle use, decreased breath sounds, prolonged expiratory - Cardiovascular Cardiovascular Exam: Present: regular rate, normal rhythm, normal heart sounds. Absent: systolic murmur, diastolic murmur, rubs, gallop - GI/Abdominal GI/Abdominal exam: Present: soft, normal bowel sounds. Absent: distended, tenderness, guarding, rebound, rigid - Back Exam Back exam: Present: CVA tenderness (L). Absent: CVA tenderness (R) - Neurological Exam Neurological exam: Present: alert, oriented X3 - Psychiatric Psychiatric exam: Present: normal affect, normal mood - Skin Skin exam: Present: warm, dry, intact ED Course Vital Signs 11/23/19 11/23/19 11/23/19 16:35 18:51 21:35 Temperature 97.9 F 97.9 F Pulse Rate 83 91 H 83 Respiratory 20 20 18 Rate Blood Pressure 172/93 172/93 Blood Pressure 156/94 [Left] O2 Sat by Pulse 100 100 99 Oximetry ED Medical Decision Making - Lab Data Result diagrams: 11/23/19 19:31 11/23/19 19:31 Lab Results 11/23/19 11/23/19 11/23/19 Range/Units 19:31 19:31 Unknown WBC 8.5 (4.5-11.0) K/mm3 RBC 4.31 (3.65-5.03) M/mm3 Hgb 10.9 (10.1-14.3) gm/dl Hct 34.9 (30.3-42.9) % MCV 81 (79-97) fl MCH 25 L (28-32) pg MCHC 31 (30-34) % RDW 15.7 H (13.2-15.2) % Plt Count 381 (140-440) K/mm3 Lymph % (Auto) 35.2 H (13.4-35.0) % Gulf % (Auto) 4.5 (0.0-7.3) % Eos % (Auto) 3.5 (0.0-4.3) % Baso % (Auto) 1.8 (0.0-1.8) % Lymph # 3.0 (1.2-5.4) K/mm3 Gulf # 0.4 (0.0-0.8) K/mm3 Eos # 0.3 (0.0-0.4) K/mm3 Baso # 0.2 H (0.0-0.1) K/mm3 Seg Neutrophils % 55.0 (40.0-70.0) % Seg Neutrophils # 4.7 (1.8-7.7) K/mm3 Sodium 142 (137-145) mmol/L Potassium 4.4 (3.6-5.0) mmol/L Chloride 102.2 (98-107) mmol/L Carbon Dioxide 25 (22-30) mmol/L Anion Gap 19 mmol/L BUN 12 (7-17) mg/dL Creatinine 0.8 (0.7-1.2) mg/dL Estimated GFR > 60 ml/min BUN/Creatinine Ratio 15 % Glucose 112 H (65-100) mg/dL Calcium 9.5 (8.4-10.2) mg/dL Urine Color Yellow (Yellow) Urine Turbidity Clear (Clear) Urine pH 5.0 (5.0-7.0) Ur Specific [place] 1.025 (1.003-1.030) Urine Protein <15 mg/dl (Negative) mg/dL Urine Glucose (UA) Neg (Negative) mg/dL Urine Ketones Neg (Negative) mg/dL Urine Blood Neg (Negative) Urine Nitrite Neg (Negative) Urine Bilirubin Neg (Negative) Urine Urobilinogen < 2.0 (<2.0) mg/dL Ur Leukocyte Esterase Neg (Negative) Urine WBC (Auto) 1.0 (0.0-6.0) /HPF Urine RBC (Auto) 3.0 (0.0-6.0) /HPF U Epithel Cells (Auto) 2.0 (0-13.0) /HPF Urine Bacteria (Auto) 1+ (Negative) /HPF Urine Mucus Few /HPF Urine HCG, Qual Negative (Negative) - Radiology Data Radiology results: report reviewed CT abdomen pelvis wo con INDICATION: left flank pain. TECHNIQUE: All CT scans at this location are performed using the following dose modulation technique: Automated exposure control. CONTRAST: None. COMPARISON: None available. CT ABDOMEN: Evaluation the parenchymal organs demonstrates 2 nonobstructing stones with the larger measuring 2 mm. The remaining parenchymal organs are unremarkable. Negative for abdominal mass, fluid or inflammation. The bowel is not dilated or thickened. CT PELVIS: Negative for distal ureteral stone, pelvic fluid collection or inflammation. The appendix is normal. IMPRESSION: Small nonobstructing left renal stones. Signer Name: Timoteo Schuster MD Signed: 11/23/2019 9:07 PM Workstation Name: [id number] Transcribed By: ES Dictated By: Timoteo Schuster MD Electronically Authenticated By: Timoteo Schuster MD Signed Date/Time: [id number] DD/ 02 TD/TT: - Medical Decision Making Patient is a 44-year-old female presents emergency room with complaints of left flank pain that began last week. She states that she has urinary frequency. Patient states that she has come to the emergency room several times in the past for this pain and was diagnosed with a UTI on 1 occasion and nephrolithiasis d uring another visit. She states that she completed a course of Macrobid given by her primary care physician and that resolved her discomfort. She states that her discomfort began again last week. She denies any vomiting, diarrhea, abdominal pain, dysuria, difficulty urinating, unexplained weight loss, fever. She has a past medical history of hypertension. She states he has an allergy to sulfa. She states her last menstrual cycle was last month. Patient states that she has not seen an [facility]. Vitals are stable. On exam left-sided CVA tenderness to palpation. Labs are stable. Kidney function is normal. UA without evidence of UTI. Urine is negative. CT abdomen pelvis wit hout contrast: Small nonobstructing left renal stones. Urine culture is, discussed with patient to go to medical records in 4 to 5 days for results of the urine culture to see if she needed treatment. Offered patient a prescription for pain medication, she politely declined and states that Tylenol works for her. Patient given prescription for Zofran and Tylenol. advised pt to please take medication as prescribed as needed. Increase your water intake over the next several days. Follow-up with a urologist. Follow-up with [facility]. Please go to medical records in approximately 4 days for results of your urine culture to see if any bacteria grew in your urine, your UA today does not show any signs of an acute infection, if your urine culture results are positive you will need antibiotic treatment for that. Return to the emergency room for any new or worsening symptoms. - Differential Diagnosis UTI, nephrolithiasis, pyelonephritis, mass, RAFAL, fibroids Critical care attestation.: If time is entered above; I have spent that time in minutes in the direct care of this critically ill patient, excluding procedure time. ED Disposition Clinical Impression: Left flank pain, Urinary frequency, Nephrolithiasis Disposition: TO HOME OR SELFCARE Is pt being admited?: No Does the pt Need Aspirin: No Condition: Stable Instructions: Kidney Stones (ED), Flank Pain (ED) Additional Instructions: Please take medication as prescribed as needed. Increase your water intake over the next several days. Follow-up with a urologist. Follow-up with [facility]. Please go to medical records in approximately 4 days for results of your urine culture to see if any bacteria grew in your urine, your UA today does not show any signs of an acute infection, if your urine culture results are positive you will need antibiotic treatment for that. Return to the emergency room for any new or worsening symptoms. Prescriptions: Acetaminophen [Acetaminophen ER TAB] 650 mg PO Q8HR PRN #14 tablet.er PRN Reason: Pain Ondansetron [Zofran Odt] 4 mg PO Q8HR PRN #14 tab.rapdis PRN Reason: Nausea And Vomiting Referrals: [facility] [Provider Group] - 3-5 Days [facility] [Provider Group] - 3-5 Days [facility] [Provider Group] - 3-5 Days RACQUEL GORDON MD [Staff Physician] - 3-5 Days Time of Disposition: 21:29 Print Language: LUXEMBOURGER
[2019-11-23 21:47] VITALS: BP 156/94
== END 2019-11-23 21:35 | disposition home or self-care (01) ==
LOC: ED 16:30
DX: N20.0 Calculus of kidney (principal); I10 Essential (primary) hypertension; D64.9 Anemia, unspecified; Z79.1 Long term (current) use of non-steroidal anti-inflammatories (NSAID); Z79.899 Other long term (current) drug therapy; Z88.2 Allergy status to sulfonamides
CPT/HCPCS: 36415; 74176; 80048; 81001; 81025; 85025; 87086

== ENCOUNTER 2020-06-12 21:34 | Emergency (ER) | payer MEDICAID ==
[2020-06-12 22:54] VITALS: BP 159/89
[2020-06-13] MEDS ORDERED: ONDANSETRON 4 MG ODT TAB PO ONE (00:44)
[2020-06-13] MEDS ORDERED: AMOXICILLIN/K CLAV 875/125MG TAB PO ONE (00:44)
[2020-06-13] MEDS ORDERED: traMADol 50 MG TAB PO ONE (00:44)
--- NOTE | 2020-06-13 00:49 | Emergency Department Report ---
ED General Adult HPI - General Chief complaint: Earache Stated complaint: EAR ACHE ABD PAIN Time Seen by Provider: 06/13/20 00:19 Source: patient Mode of arrival: Ambulatory Limitations: No Limitations - History of Present Illness Initial comments: Patient presents to emergency department the chief complaint of left ear pain and sinus pain and pressure. He states she has a history of sinus infections thus her reasoning for coming to the emergency department for evaluation. Patient denies fever, chest pain, shortness breath, or headache. -: Gradual, week(s) Severity scale (0 -10): 4 Quality: aching Consistency: constant Improves with: none Worsens with: none Associated Symptoms: denies other symptoms Treatments Prior to Arrival: none - Related Data Home Medications Medication Instructions Recorded Confirmed Last Taken Ibuprofen [Motrin 800 MG tab] 800 mg PO TID PRN 01/05/19 01/05/19 Unknown Previous Rx's Medication Instructions Recorded Last Taken Type Omeprazole 20 mg PO DAILY #30 capsule. 01/06/19 Unknown Rx hydroCHLOROthiazide [HCTZ] 25 mg PO QDAY #30 tablet 01/06/19 Unknown Rx Naproxen [Naprosyn] 500 mg PO BID #20 tablet 04/25/19 Unknown Rx traMADoL [Ultram] 50 mg PO Q6HR PRN #7 tablet 04/25/19 Unknown Rx Ciprofloxacin HCl [Ciprofloxacin 500 mg PO BID 10 Days #20 tab 10/04/19 Unknown Rx TAB] Ketorolac [Toradol] 10 mg PO Q6H PRN #12 tablet 10/04/19 Unknown Rx Ciprofloxacin HCl [Ciprofloxacin 500 mg PO Q12HR #14 tab 10/06/19 Unknown Rx TAB] Acetaminophen [Acetaminophen ER 650 mg PO Q8HR PRN #14 tablet.er 11/23/19 Unknown Rx TAB] Ondansetron [Zofran Odt] 4 mg PO Q8HR PRN #14 tab.rapdis 11/23/19 Unknown Rx Amoxicillin/Potassium Clav 1 each PO BID #14 tablet 06/13/20 Unknown Rx [Augmentin 875-125 Tablet] Fluticasone [Flonase] 1 spray NS QDAY #1 bottle 06/13/20 Unknown Rx traMADoL [Ultram] 50 mg PO Q6HR PRN #24 tablet 06/13/20 Unknown Rx Allergies Allergy/AdvReac Type Severity Reaction Status Date / Time Sulfa (Sulfonamide Allergy Hives Verified 01/05/19 07:46 Antibiotics) ED Review of Systems ROS: Stated complaint: EAR ACHE ABD PAIN Other details as noted in HPI Comment: All other systems reviewed and negative Constitutional: denies: chills, fever Eyes: denies: eye pain, eye discharge, vision change ENT: ear pain. denies: throat pain Respiratory: denies: cough, shortness of breath, wheezing Cardiovascular: denies: chest pain, palpitations Endocrine: no symptoms reported Gastrointestinal: denies: abdominal pain, nausea, diarrhea Genitourinary: denies: urgency, dysuria, discharge Musculoskeletal: denies: back pain, joint swelling, arthralgia Skin: denies: rash, lesions Neurological: denies: headache, weakness, paresthesias Psychiatric: denies: anxiety, depression Hematological/Lymphatic: denies: easy bleeding, easy bruising ED Past Medical Hx - Past Medical History Previous Medical History?: Yes Hx Hypertension: Yes Additional medical history: anemia, Morbid Obesity - Surgical History Past Surgical History?: Yes Additional Surgical History: Embolization Uterine Fibroid,TUBAL LIGATION - Social History Smoking Status: Never Smoker Substance Use Type: None - Medications Home Medications: Home Medications Medication Instructions Recorded Confirmed Last Taken Type Ibuprofen [Motrin 800 MG tab] 800 mg PO TID PRN 01/05/19 01/05/19 Unknown History Omeprazole 20 mg PO DAILY #30 capsule. 01/06/19 Unknown Rx hydroCHLOROthiazide [HCTZ] 25 mg PO QDAY #30 tablet 01/06/19 Unknown Rx Naproxen [Naprosyn] 500 mg PO BID #20 tablet 04/25/19 Unknown Rx traMADoL [Ultram] 50 mg PO Q6HR PRN #7 tablet 04/25/19 Unknown Rx Ciprofloxacin HCl [Ciprofloxacin 500 mg PO BID 10 Days #20 tab 10/04/19 Unknown Rx TAB] Ketorolac [Toradol] 10 mg PO Q6H PRN #12 tablet 10/04/19 Unknown Rx Ciprofloxacin HCl [Ciprofloxacin 500 mg PO Q12HR #14 tab 10/06/19 Unknown Rx TAB] Acetaminophen [Acetaminophen ER 650 mg PO Q8HR PRN #14 tablet.er 11/23/19 Unknown Rx TAB] Ondansetron [Zofran Odt] 4 mg PO Q8HR PRN #14 tab.rapdis 11/23/19 Unknown Rx Amoxicillin/Potassium Clav 1 each PO BID #14 tablet 06/13/20 Unknown Rx [Augmentin 875-125 Tablet] Fluticasone [Flonase] 1 spray NS QDAY #1 bottle 06/13/20 Unknown Rx traMADoL [Ultram] 50 mg PO Q6HR PRN #24 tablet 06/13/20 Unknown Rx ED Physical Exam - General Limitations: No Limitations General appearance: alert, in no apparent distress - Head Head exam: Present: atraumatic, normocephalic, other (Tenderness palpation of frontal sinuses) - Eye Eye exam: Present: normal appearance - ENT ENT exam: Present: mucous membranes moist, other (Left tympanic membrane is bulging and not able to see the ossicles behind the membrane.) - Neck Neck exam: Present: normal inspection - Respiratory Respiratory exam: Present: normal lung sounds bilaterally. Absent: respiratory distress - Cardiovascular Cardiovascular Exam: Present: regular rate, normal rhythm. Absent: systolic murmur, diastolic murmur, rubs, gallop - GI/Abdominal GI/Abdominal exam: Present: soft, normal bowel sounds - Extremities Exam Extremities exam: Present: normal inspection - Back Exam Back exam: Present: normal inspection - Neurological Exam Neurological exam: Present: alert, oriented X3 - Psychiatric Psychiatric exam: Present: normal affect, normal mood - Skin Skin exam: Present: warm, dry, intact, normal color. Absent: rash ED Course Vital Signs 06/12/20 22:53 Temperature 97.8 F Pulse Rate 84 Respiratory 20 Rate Blood Pressure 159/89 O2 Sat by Pulse 100 Oximetry ED Medical Decision Making - Medical Decision Making Plan of care discussed with patient Critical care attestation.: If time is entered above; I have spent that time in minutes in the direct care of this critically ill patient, excluding procedure time. ED Disposition Clinical Impression: Sinusitis, Otalgia of left ear Disposition: - TO HOME OR SELFCARE Is pt being admited?: No Does the pt Need Aspirin: No Condition: Stable Instructions: Sinusitis (ED), Earache (ED) Additional Instructions: return if worse Prescriptions: Amoxicillin/Potassium Clav [Augmentin 875-125 Tablet] 1 each PO BID #14 tablet Fluticasone [Flonase] 1 spray NS QDAY #1 bottle traMADoL [Ultram] 50 mg PO Q6HR PRN #24 tablet PRN Reason: Pain Referrals: [facility]IMARY [facility], [Primary Care Provider] - 3-5 Days NAVA DANIELS MD [Staff Physician] - 3-5 Days RADHA MARTINS MD [Staff Physician] - 3-5 Days Time of Disposition: 00:47
== END 2020-06-13 01:24 | disposition home or self-care (01) ==
LOC: ED 21:34
DX: H92.02 Otalgia, left ear (principal); J32.9 Chronic sinusitis, unspecified; I10 Essential (primary) hypertension; Z98.51 Tubal ligation status; Z98.890 Other specified postprocedural states; Z79.1 Long term (current) use of non-steroidal anti-inflammatories (NSAID); Z79.2 Long term (current) use of antibiotics; Z79.899 Other long term (current) drug therapy; Z88.2 Allergy status to sulfonamides
CPT/HCPCS: 99282; Q0162

== ENCOUNTER 2021-01-02 19:32 | Emergency (ER) | payer MEDICAID ==
[2021-01-02 19:48] VITALS: BP 187/97
--- NOTE | 2021-01-02 20:56 | Event Note ---
ED Screening Note Date of service: 01/02/21 Time: 20:52 ED Screening Note: Pt complains of dizziness x yesterday also complains of face twitching hx of HTN denies GIBSON, head injury, or CP states feeling winded no hx of long travel/DVT/PE/leg pain/swelling This initial assessment/diagnostic orders/clinical plan/treatment(s) is/are subject to change based on patients health status, clinical progression and re- assessment by fellow clinical providers in the ED. Further treatment and workup at subsequent clinical providers discretion. Patient/guardian urged not to elope from the ED as their condition may be serious if not clinically assessed and managed. Initial orders include: labs ekg CXR
[2021-01-02 21:32] LABS: Basophils # (Auto) 0.1 K/mm3 (0.0-0.1); Basophils % (Auto) 0.9 % (0.0-1.8); Eosinophils # (Auto) 0.2 K/mm3 (0.0-0.4); Eosinophils % (Auto) 3.3 % (0.0-4.3); Hematocrit 34.4 % (30.3-42.9); Lymphocytes # (Auto) 2.8 K/mm3 (1.2-5.4); Lymphocytes % (Auto) 37.6 % (13.4-35.0); Mean Corpuscular HGB Conc 32 % (30-34); Mean Corpuscular Volume 80 fl (79-97); Monocytes # (Auto) 0.4 K/mm3 (0.0-0.8); Platelet Count 369 K/mm3 (140-440); Red Blood Count 4.32 M/mm3 (3.65-5.03); Red Cell Distribution Width 16.5 % (13.2-15.2)
[2021-01-02 21:38] LABS: Bacteria,Urine 1+ /HPF (Negative); Bilirubin,Urine NEG (Negative); Blood,Urine NEG (Negative); Color,Urine Yellow (Yellow); Mucus,Urine FEW /HPF; Protein,Urine <15 mg/dL mg/dL (Negative); Urobilinogen,Urine < 2.0 mg/dL (<2.0)
[2021-01-02 21:48] LABS: Alanine Aminotransferase 12 units/L (7-56); Albumin 4.1 g/dL (3.9-5); BUN/Creatinine Ratio 11; Blood Urea Nitrogen 9 mg/dL (7-17); Calcium 9.2 mg/dL (8.4-10.2); Hemolysis Index 2
--- NOTE | 2021-01-02 22:07 | XRay Report ---
XR chest routine 2V INDICATION / CLINICAL INFORMATION: SOB COMPARISON: None available. FINDINGS: SUPPORT DEVICES: None. HEART / MEDIASTINUM: No significant abnormality. LUNGS / PLEURA: Lungs are clear. Costophrenic sulci are sharp. No pneumothorax. ADDITIONAL FINDINGS: No significant additional findings. IMPRESSION: 1. No acute findings. Signer Name: Rico Huitron MD Signed: 01/02/2021 10:02 PM Workstation Name: [id number]
== END 2021-01-03 01:00 | disposition left against medical advice (07) ==
LOC: ED 19:32
DX: R42 Dizziness and giddiness (principal); Z53.21 Procedure and treatment not carried out due to patient leaving prior to being seen by health care provider
CPT/HCPCS: 36415; 71046; 80053; 81001; 84484; 85025

== ENCOUNTER 2021-06-19 13:46 | Emergency (ER) | payer MEDICAID ==
--- NOTE | 2021-06-19 14:33 | Emergency Department Report ---
ED Female HPI - General Chief complaint: Abdominal Pain Stated complaint: PAIN ON LEFT SIDE OF WAIST Time Seen by Provider: 06/19/21 14:15 Source: patient Mode of arrival: Ambulatory Limitations: No Limitations - History of Present Illness Initial comments: Patient is a 45-year-old female presents emergency room complaints of a "UTI." Patient states that 2 weeks ago she went to her fabrication technician at [facility] and was diagnosed with a UTI and put on Macrobid. She states that she was having side effects from the Macrobid and only took 3 days. She states that she is having dysuria, urinary frequency, left lower back pain. She denies any fever, vomiting, diarrhea, chills, abdominal pain, vaginal bleeding or discharge. She denies any concerns for STDs. No past medical history. No allergies to medications. She reports her last menstrual cycle was in April and states that she has irregular cycles. - Related Data Home Medications Medication Instructions Recorded Confirmed Last Taken Ibuprofen [Motrin 800 MG tab] 800 mg PO TID PRN 01/05/19 01/05/19 Unknown Previous Rx's Medication Instructions Recorded Last Taken Type Omeprazole 20 mg PO DAILY #30 capsule. 01/06/19 Unknown Rx hydroCHLOROthiazide [HCTZ] 25 mg PO QDAY #30 tablet 01/06/19 Unknown Rx Naproxen [Naprosyn] 500 mg PO BID #20 tablet 04/25/19 Unknown Rx traMADoL [Ultram] 50 mg PO Q6HR PRN #7 tablet 04/25/19 Unknown Rx Ciprofloxacin HCl [Ciprofloxacin 500 mg PO BID 10 Days #20 tab 10/04/19 Unknown Rx TAB] Ketorolac [Toradol] 10 mg PO Q6H PRN #12 tablet 10/04/19 Unknown Rx Ciprofloxacin HCl [Ciprofloxacin 500 mg PO Q12HR #14 tab 10/06/19 Unknown Rx TAB] Acetaminophen [Acetaminophen ER 650 mg PO Q8HR PRN #14 tablet.er 11/23/19 Unknown Rx TAB] Ondansetron [Zofran Odt] 4 mg PO Q8HR PRN #14 tab.rapdis 11/23/19 Unknown Rx Amoxicillin/Potassium Clav 1 each PO BID #14 tablet 06/13/20 Unknown Rx [Augmentin 875-125 Tablet] Fluticasone [Flonase] 1 spray NS QDAY #1 bottle 06/13/20 Unknown Rx traMADoL [Ultram] 50 mg PO Q6HR PRN #24 tablet 06/13/20 Unknown Rx Phenazopyridine [Pyridium] 100 mg PO TID 2 Days #6 tab 06/19/21 Unknown Rx cephALEXin [Keflex] 500 mg PO BID 7 Days #14 capsule 06/19/21 Unknown Rx Allergies Allergy/AdvReac Type Severity Reaction Status Date / Time Sulfa (Sulfonamide Allergy Hives Verified 01/05/19 07:46 Antibiotics) ED Review of Systems ROS: Stated complaint: PAIN ON LEFT SIDE OF WAIST Other details as noted in HPI Comment: All other systems reviewed and negative ED Past Medical Hx - Past Medical History Hx Hypertension: Yes Additional medical history: anemia, Morbid Obesity - Surgical History Additional Surgical History: Embolization Uterine Fibroid,TUBAL LIGATION - Social History Smoking Status: Never Smoker Substance Use Type: None - Medications Home Medications: Home Medications Medication Instructions Recorded Confirmed Last Taken Type Ibuprofen [Motrin 800 MG tab] 800 mg PO TID PRN 01/05/19 01/05/19 Unknown History Omeprazole 20 mg PO DAILY #30 capsule. 01/06/19 Unknown Rx hydroCHLOROthiazide [HCTZ] 25 mg PO QDAY #30 tablet 01/06/19 Unknown Rx Naproxen [Naprosyn] 500 mg PO BID #20 tablet 04/25/19 Unknown Rx traMADoL [Ultram] 50 mg PO Q6HR PRN #7 tablet 04/25/19 Unknown Rx Ciprofloxacin HCl [Ciprofloxacin 500 mg PO BID 10 Days #20 tab 10/04/19 Unknown Rx TAB] Ketorolac [Toradol] 10 mg PO Q6H PRN #12 tablet 10/04/19 Unknown Rx Ciprofloxacin HCl [Ciprofloxacin 500 mg PO Q12HR #14 tab 10/06/19 Unknown Rx TAB] Acetaminophen [Acetaminophen ER 650 mg PO Q8HR PRN #14 tablet.er 11/23/19 Unknown Rx TAB] Ondansetron [Zofran Odt] 4 mg PO Q8HR PRN #14 tab.rapdis 11/23/19 Unknown Rx Amoxicillin/Potassium Clav 1 each PO BID #14 tablet 06/13/20 Unknown Rx [Augmentin 875-125 Tablet] Fluticasone [Flonase] 1 spray NS QDAY #1 bottle 06/13/20 Unknown Rx traMADoL [Ultram] 50 mg PO Q6HR PRN #24 tablet 06/13/20 Unknown Rx Phenazopyridine [Pyridium] 100 mg PO TID 2 Days #6 tab 06/19/21 Unknown Rx cephALEXin [Keflex] 500 mg PO BID 7 Days #14 capsule 06/19/21 Unknown Rx ED Physical Exam - General Limitations: No Limitations General appearance: alert, in no apparent distress - Head Head exam: Present: atraumatic, normocephalic - Eye Eye exam: Present: normal appearance - ENT ENT exam: Present: mucous membranes moist - Respiratory Respiratory exam: Present: normal lung sounds bilaterally. Absent: respiratory distress, wheezes, rales, rhonchi, stridor, chest wall tenderness, accessory muscle use, decreased breath sounds, prolonged expiratory - Cardiovascular Cardiovascular Exam: Present: regular rate, normal rhythm, normal heart sounds. Absent: systolic murmur, diastolic murmur, rubs, gallop - GI/Abdominal GI/Abdominal exam: Present: soft, normal bowel sounds. Absent: distended, tenderness, guarding, rebound, rigid - Back Exam Back exam: Absent: CVA tenderness (R), CVA tenderness (L) - Neurological Exam Neurological exam: Present: alert, oriented X3 - Psychiatric Psychiatric exam: Present: normal affect, normal mood - Skin Skin exam: Present: warm, dry, intact ED Course Vital Signs 06/19/21 06/19/21 13:59 15:53 Temperature 98.3 F Pulse Rate 92 H 84 Respiratory 18 14 Rate Blood Pressure 154/69 Blood Pressure 132/73 [Left] O2 Sat by Pulse 96 97 Oximetry ED Medical Decision Making - Medical Decision Making Patient is a 45-year-old female presents emergency room complaints of a "UTI." Patient states that 2 weeks ago she went to her fabrication technician at [facility] and was diagnosed with a UTI and put on Macrobid. She states that she was having side effects from the Macrobid and only took 3 days. She states that she is having dysuria, urinary frequency, left lower back pain. She denies any fever, vomiting, diarrhea, chills, abdominal pain, vaginal bleeding or discharge. She denies any concerns for STDs. No past medical history. No allergies to med ications. She reports her last menstrual cycle was in April and states that she has irregular cycles. Vitals are stable. No abdominal tenderness or CVA tenderness on exam. UA is normal. Urine is negative. Urine culture is sent. Patient is insistent on having antibiotics for a urinary tract infection. Patient given prescription for Keflex and Prodium. Advised patient Please take medication as prescribed. Medication may turn your urine orange, this is normal. Increase your water intake. Follow-up with a urologist. Follow-up with a primary care doctor. Return to emergency room for any new or worsening symptoms. You will need to go to medical records in approximately 3 to 5 days for results of your urine culture, please take this to your primary care doctor or to the urologist. Critical care attestation.: If time is entered above; I have spent that time in minutes in the direct care of this critically ill patient, excluding procedure time. ED Disposition Clinical Impression: Dysuria Back pain Qualifiers: Back pain location: low back pain Chronicity: acute Back pain laterality: left Sciatica presence: without sciatica Qualified Code(s): M54.50 - Low back pain, unspecified Disposition: 01 HOME / SELF CARE / HOMELESS Is pt being admited?: No Does the pt Need Aspirin: No Condition: Stable Instructions: Dysuria, Abdominal Pain (ED) Additional Instructions: Please take medication as prescribed. Medication may turn your urine orange, this is normal. Increase your water intake. Follow-up with a urologist. Follow-up with a primary care doctor. Return to emergency room for any new or worsening symptoms. You will need to go to medical records in approximately 3 to 5 days for results of your urine culture, please take this to your primary care doctor or to the urologist. Prescriptions: cephALEXin [Keflex] 500 mg PO BID 7 Days #14 capsule Phenazopyridine [Pyridium] 100 mg PO TID 2 Days #6 tab Referrals: RACQUEL GORDON MD [Staff Physician] - 3-5 Days your, primary care doctor [Other] - 3-5 Days Time of Disposition: 15:44 Print Language: MALTESE
[2021-06-19 15:23] LABS: Bilirubin,Urine NEG (Negative); Blood,Urine NEG (Negative); Color,Urine Yellow (Yellow); Mucus,Urine FEW /HPF; Protein,Urine <15 mg/dL mg/dL (Negative); Urobilinogen,Urine < 2.0 mg/dL (<2.0)
[2021-06-19 15:43] LABS: HCG Qualitative,Urine Negative (Negative)
[2021-06-19 15:54] VITALS: BP 132/73
== END 2021-06-19 16:00 | disposition home or self-care (01) ==
LOC: ED 13:46
DX: R30.0 Dysuria (principal); M54.50 Low back pain, unspecified; I10 Essential (primary) hypertension; E66.01 Morbid (severe) obesity due to excess calories; Z98.890 Other specified postprocedural states; Z98.51 Tubal ligation status; Z88.1 Allergy status to other antibiotic agents
CPT/HCPCS: 81001; 81025; 87086; 99283

== ENCOUNTER 2021-11-20 23:02 | Emergency (ER) | payer MEDICAID ==
[2021-11-21] MEDS ORDERED: SODIUM CHLORIDE 0.9% 1000 ML 1,000 ML IV ONE (02:07)
--- NOTE | 2021-11-21 02:09 | Emergency Department Report ---
ED Shortness of Breath HPI - General Chief Complaint: Dyspnea/Respdistress Stated Complaint: SOB Time Seen by Provider: 11/21/21 02:06 Source: patient Mode of arrival: Ambulatory Limitations: No Limitations - History of Present Illness MD Complaint: shortness of breath, chest pain - Related Data Home Medications Medication Instructions Recorded Confirmed Last Taken Ibuprofen [Motrin 800 MG tab] 800 mg PO TID PRN 01/05/19 01/05/19 Unknown Previous Rx's Medication Instructions Recorded Last Taken Type Omeprazole 20 mg PO DAILY #30 capsule.dr 01/06/19 Unknown Rx hydroCHLOROthiazide [HCTZ] 25 mg PO QDAY #30 tablet 01/06/19 Unknown Rx Naproxen [Naprosyn] 500 mg PO BID #20 tablet 04/25/19 Unknown Rx traMADoL [Ultram] 50 mg PO Q6HR PRN #7 tablet 04/25/19 Unknown Rx Ciprofloxacin HCl [Ciprofloxacin 500 mg PO BID 10 Days #20 tab 10/04/19 Unknown Rx TAB] Ketorolac [Toradol] 10 mg PO Q6H PRN #12 tablet 10/04/19 Unknown Rx Ciprofloxacin HCl [Ciprofloxacin 500 mg PO Q12HR #14 tab 10/06/19 Unknown Rx TAB] Acetaminophen [Acetaminophen ER 650 mg PO Q8HR PRN #14 tablet.er 11/23/19 Unknown Rx TAB] Ondansetron [Zofran Odt] 4 mg PO Q8HR PRN #14 tab.rapdis 11/23/19 Unknown Rx Amoxicillin/Potassium Clav 1 each PO BID #14 tablet 06/13/20 Unknown Rx [Augmentin 875-125 Tablet] Fluticasone [Flonase] 1 spray NS QDAY #1 bottle 06/13/20 Unknown Rx traMADoL [Ultram] 50 mg PO Q6HR PRN #24 tablet 06/13/20 Unknown Rx Phenazopyridine [Pyridium] 100 mg PO TID 2 Days #6 tab 06/19/21 Unknown Rx cephALEXin [Keflex] 500 mg PO BID 7 Days #14 capsule 06/19/21 Unknown Rx Pantoprazole [Protonix TAB] 40 mg PO QDAY 30 Days #30 tablet 11/21/21 Unknown Rx Allergies Allergy/AdvReac Type Severity Reaction Status Date / Time Sulfa (Sulfonamide Allergy Hives Verified 11/20/21 23:18 Antibiotics) ED Review of Systems ROS: Stated complaint: SOB Other details as noted in HPI ED Past Medical Hx - Past Medical History Previous Medical History?: Yes Hx Hypertension: Yes Additional medical history: anemia, Morbid Obesity - Surgical History Past Surgical History?: Yes Additional Surgical History: Embolization Uterine Fibroid,TUBAL LIGATION - Social History Smoking Status: Never Smoker Substance Use Type: Alcohol - Medications Home Medications: Home Medications Medication Instructions Recorded Confirmed Last Taken Type Ibuprofen [Motrin 800 MG tab] 800 mg PO TID PRN 01/05/19 01/05/19 Unknown History Omeprazole 20 mg PO DAILY #30 capsule.dr 01/06/19 Unknown Rx hydroCHLOROthiazide [HCTZ] 25 mg PO QDAY #30 tablet 01/06/19 Unknown Rx Naproxen [Naprosyn] 500 mg PO BID #20 tablet 04/25/19 Unknown Rx traMADoL [Ultram] 50 mg PO Q6HR PRN #7 tablet 04/25/19 Unknown Rx Ciprofloxacin HCl [Ciprofloxacin 500 mg PO BID 10 Days #20 tab 10/04/19 Unknown Rx TAB] Ketorolac [Toradol] 10 mg PO Q6H PRN #12 tablet 10/04/19 Unknown Rx Ciprofloxacin HCl [Ciprofloxacin 500 mg PO Q12HR #14 tab 10/06/19 Unknown Rx TAB] Acetaminophen [Acetaminophen ER 650 mg PO Q8HR PRN #14 tablet.er 11/23/19 Unknown Rx TAB] Ondansetron [Zofran Odt] 4 mg PO Q8HR PRN #14 tab.rapdis 11/23/19 Unknown Rx Amoxicillin/Potassium Clav 1 each PO BID #14 tablet 06/13/20 Unknown Rx [Augmentin 875-125 Tablet] Fluticasone [Flonase] 1 spray NS QDAY #1 bottle 06/13/20 Unknown Rx traMADoL [Ultram] 50 mg PO Q6HR PRN #24 tablet 06/13/20 Unknown Rx Phenazopyridine [Pyridium] 100 mg PO TID 2 Days #6 tab 06/19/21 Unknown Rx cephALEXin [Keflex] 500 mg PO BID 7 Days #14 capsule 06/19/21 Unknown Rx Pantoprazole [Protonix TAB] 40 mg PO QDAY 30 Days #30 tablet 11/21/21 Unknown Rx ED Physical Exam - General Limitations: No Limitations ED Course Vital Signs 11/20/21 23:14 Temperature 98.2 F Pulse Rate 100 H Respiratory 18 Rate Blood Pressure 155/92 [Left] O2 Sat by Pulse 100 Oximetry ED Medical Decision Making - Lab Data Result diagrams: 11/21/21 02:31 11/21/21 02:31 Critical care attestation.: If time is entered above; I have spent that time in minutes in the direct care of this critically ill patient, excluding procedure time. ED Disposition Clinical Impression: GERD (gastroesophageal reflux disease) Qualifiers: Esophagitis presence: with esophagitis Esophagitis bleeding: without hemorrhage Qualified Code(s): K21.00 - Gastro-esophageal reflux disease with esophagitis, without bleeding Dyspnea Qualifiers: Dyspnea type: dyspnea on exertion Qualified Code(s): R06.00 - Dyspnea, unspecified Disposition: 01 HOME / SELF CARE / HOMELESS Is pt being admited?: No Does the pt Need Aspirin: No Condition: Stable Instructions: Indigestion, [id number], Shortness of Breath, Adult, [id number], Heartburn, [id number] Prescriptions: Pantoprazole [Protonix TAB] 40 mg PO QDAY 30 Days #30 tablet Referrals: TAYLOR STERLING MD [Primary Care Provider] - 3-5 Days
--- NOTE | 2021-11-21 02:36 | XRay Report ---
CHEST 2 VIEWS INDICATION: Dyspnea. COMPARISON: 01/02/2021 FINDINGS: Support devices: None. Heart: Within normal limits. Lungs/Pleura: No acute air space or interstitial disease. No significant pleural effusion. IMPRESSION: No acute findings. Signer Name: Timoteo Schuster MD Signed: 11/21/2021 2:31 AM Workstation Name: [id number]
[2021-11-21 03:18] LABS: Creatine Kinase MB 2.7 ng/mL (0.0-4.0)
[2021-11-21 03:20] LABS: Alanine Aminotransferase 15 units/L (7-56); Albumin 4.4 g/dL (3.9-5); Blood Urea Nitrogen 11 mg/dL (7-17); Calcium 9.6 mg/dL (8.4-10.2); Hemolysis Index 5
[2021-11-21 03:23] LABS: BUN/Creatinine Ratio 16; INR 0.85 (0.87-1.13)
[2021-11-21 03:24] LABS: Partial Thromboplastin Time 25.7 Sec. (24.2-36.6)
[2021-11-21 03:39] LABS: Amphetamine Screen,Urine Negative; Benzodiazepines Screen,Urine Negative; Cannabinoid Screen,Urine Negative; Cocaine Screen,Urine Negative; Methadone Screen,Urine Negative; Opiate Screen,Urine Negative
[2021-11-21 03:47] LABS: Basophils # (Auto) 0.1 K/mm3 (0.0-0.1); Basophils % (Auto) 1.2 % (0.0-1.8); Eosinophils # (Auto) 0.2 K/mm3 (0.0-0.4); Eosinophils % (Auto) 2.1 % (0.0-4.3); Hematocrit 35.2 % (30.3-42.9); Hemoglobin 10.8 gm/dl (10.1-14.3); Lymphocytes # (Auto) 3.7 K/mm3 (1.2-5.4); Lymphocytes % (Auto) 44.3 % (13.4-35.0); Mean Corpuscular HGB Conc 31 % (30-34); Mean Corpuscular Volume 80 fl (79-97); Monocytes # (Auto) 0.4 K/mm3 (0.0-0.8); Monocytes % (Auto) 5.2 % (0.0-7.3); Platelet Count 357 K/mm3 (140-440); Red Blood Count 4.42 M/mm3 (3.65-5.03); Red Cell Distribution Width 16.8 % (13.2-15.2)
--- NOTE | 2021-11-21 05:26 | Cat Scan Report ---
CTA CHEST WITH CONTRAST INDICATION / CLINICAL INFORMATION: chest pain, sob, elevated ddimer. TECHNIQUE: Axial CT images were obtained through the chest after injection of Omnipaque 350, 100 cc I V contrast. 3 plane MIP and/or 3D reconstructions were produced. All CT scans at this location are pe rformed using CT dose reduction for ALARA by means of automated exposure control. COMPARISON: 01/06/2019. FINDINGS: PULMONARY ARTERIES: No pulmonary emboli. THORACIC AORTA: No significant abnormality. HEART: Mild cardiac enlargement. CORONARY ARTERY CALCIFICATION: None. MEDIASTINUM / NETO: No significant abnormality. PLEURA: No pleural effusion. No pneumothorax. LUNGS: No acute air space or interstitial disease. ADDITIONAL FINDINGS: None. UPPER ABDOMEN: No acute findings. SKELETAL STRUCTURES: No significant osseous abnormality. IMPRESSION: 1. No CT evidence for pulmonary embolism. 2. Negative for pneumonia. Signer Name: Timoteo Schuster MD Signed: 11/21/2021 5:21 AM Workstation Name: [id number]
[2021-11-21 06:04] VITALS: BP 168/91
--- NOTE | 2021-11-22 10:44 | Electrocardiograph Report ---
[facility] Test Date: 2021-11-20 Test Time: 23:21:50 Pat Name: MADDIE MIRANDA Department: Room: Gender: F Resource Paraprofessional: YUSRA : 1975 Requested By: LASHAE TIAN Order Number: [id number] Reading MD: Darryl Bess Measurements Intervals [place] Rate: 97 P: 68 [place]: 192 QRS: 80 QRSD: 93 T: 49 QT: 323 QTc: 412 Interpretive Statements Sinus rhythm Compared to ECG 01/02/2021 21:17:27 No significant changes Electronically Signed On 11-22-2021 10:43:58 EDT by Darryl Bess
== END 2021-11-21 06:04 | disposition home or self-care (01) ==
LOC: ED 23:02
DX: K21.9 Gastro-esophageal reflux disease without esophagitis (principal); I10 Essential (primary) hypertension; Z72.89 Other problems related to lifestyle; Z88.2 Allergy status to sulfonamides; Z79.899 Other long term (current) drug therapy
CPT/HCPCS: 36415; 71046; 71275; 80053; 80307; 82550; 82553; 83690; 83735; 83880; 84484; 85025; 85379; 85610; 85730; 93005; 96360; 99284; J7030; Q9967; Q0162